=== PATIENT | female | born 1990 | race Two or more races ===

== ENCOUNTER 2019-12-04 20:13 | Emergency (ER) | payer BC ==
--- NOTE | 2019-12-04 20:35 | EDM.PDOC ---
ED HPI GENERAL MEDICAL PROBLEM - General Chief Complaint: Gastrointestinal Problem Stated Complaint: VOMITING DIZZY FEVER Time Seen by Provider: 12/04/19 20:26 - History of Present Illness INITIAL COMMENTS - FREE TEXT/NARRATIVE: 29-year-old female presents the emergency room with persistent nausea and vomiting. This is been an ongoing issue for the last several weeks. The patient has a positive test. She believes this is her fourth she had hyperemesis with all her other pregnancies but this time it seems to be worse. Patient started to get dizzy when she tries to ambulate and just cannot keep anything down food or fluids. She is not having any spotting discharge cramping or contractions. Is really not having any abdominal pain. She denies any burning or frequency with urination. She has follow-up with OB in 2 days. . Abdomen Pain Score (Numeric/FACES): 5 - Related Data Allergies Allergy/AdvReac Type Severity Reaction Status Date / Time Penicillins Allergy Hives Verified 12/04/19 20:25 Home Meds: Home Meds Ondansetron [Zofran ODT] 4 mg PO Q6H PRN #10 tab.dis 12/04/19 [Rx] Ondansetron [Zofran ODT] 4 mg PO Q6H PRN #10 tab.dis 12/04/19 [Rx] Ondansetron [Zofran ODT] 4 mg PO Q6H PRN #10 tab.dis #2 Samples 12/04/19 [Rx] Potassium Chloride [Klor-Con 10] 10 meq PO Q8H #9 tablet.er 12/04/19 [Rx] Past Medical History - Past Health History Medical/Surgical History: Denies Medical/Surgical History HEENT History: Reports: Other (See Below) Other HEENT History: wears glasses Respiratory History: Reports: Other (See Below) 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: Neurological History: Reports: Migraines Endocrine/Metabolic History: Reports: Obesity/BMI 30+ Hematologic History: Reports: Other (See Below) Dermatologic History: Reports: Eczema, Other (See Below) - Past Surgical History HEENT Surgical History: Reports: Tonsillectomy Female Surgical History: Reports: Section Social & Family History - Family History Family Medical History: Noncontributory ED ROS GENERAL - Review of Systems Review Of Systems: See Below Constitutional: Denies: Fever, Chills HEENT: Reports: No Symptoms Respiratory: Reports: No Symptoms Cardiovascular: Reports: No Symptoms Endocrine: Reports: No Symptoms GI/Abdominal: Reports: Decreased Appetite, Nausea, Vomiting. Denies: Abdominal Pain : Reports: No Symptoms Musculoskeletal: Reports: No Symptoms Skin: Reports: No Symptoms Neurological: Reports: No Symptoms ED EXAM, GI/ABD - Physical Exam Exam: See Below Exam Limited By: No Limitations General Appearance: Alert, No Apparent Distress Throat/Mouth: Normal Inspection, Normal Lips, Normal Teeth, Normal Gums, Normal Oropharynx, Normal Voice, No Airway Compromise Head: Atraumatic, Normocephalic Neck: Normal Inspection, Supple, Non-Tender, Full Range of Motion Respiratory/Chest: No Respiratory Distress, Lungs Clear, Normal Breath Sounds Cardiovascular: Regular Rate, Rhythm, No Edema, No Murmur GI/Abdominal Exam: Normal Bowel Sounds, Soft, Non-Tender Back Exam: Normal Inspection. No: CVA Tenderness (R), Muscle Spasm Extremities: Normal Inspection, No Pedal Edema Neurological: Alert, Oriented, Normal Cognition Course - Vital Signs Last Recorded V/S: Last Vital Signs Temp 36.3 C 12/04/19 20:22 Pulse 115 H 12/04/19 20:22 Resp 19 12/04/19 20:22 BP 136/100 H 12/04/19 20:22 Pulse Ox 95 12/04/19 20:22 - Orders/Labs/Meds Labs: Laboratory Tests 12/04/19 12/04/19 12/04/19 Range/Units 21:03 21:03 22:10 WBC 14.21 H (3.98-10.04) K/mm3 RBC 4.69 (3.98-5.22) M/mm3 Hgb 14.2 (11.2-15.7) gm/dl Hct 41.7 (34.1-44.9) % MCV 88.9 D (79.4-94.8) fl MCH 30.3 (25.6-32.2) pg MCHC 34.1 (32.2-35.5) g/dl RDW Std Deviation 42.3 (36.4-46.3) fL Plt Count 311 (182-369) K/mm3 MPV 10.8 (9.4-12.3) fl Neut % (Auto) 68.5 (34.0-71.1) % Lymph % (Auto) 22.2 (19.3-51.7) % [place] % (Auto) 8.7 (4.7-12.5) % Eos % (Auto) 0.4 L (0.7-5.8) Baso % (Auto) 0.1 (0.1-1.2) % Neut # (Auto) 9.72 H (1.56-6.13) K/mm3 Lymph # (Auto) 3.16 (1.18-3.74) K/mm3 [place] # (Auto) 1.24 H (0.24-0.36) K/mm3 Eos # (Auto) 0.05 (0.04-0.36) K/mm3 Baso # (Auto) 0.02 (0.01-0.08) K/mm3 Manual Slide Review Abnormal smear Sodium 137 (136-145) mEq/L Potassium 3.1 L (3.5-5.1) mEq/L Chloride 100 (98-107) mEq/L Carbon Dioxide 21 (21-32) mEq/L Anion Gap 19.1 H (5-15) BUN 8 (7-18) mg/dL Creatinine 0.6 (0.55-1.02) mg/dL Est Cr Clr Drug Dosing 108.43 mL/min Estimated GFR (MDRD) > 60 (>60) mL/min BUN/Creatinine Ratio 13.3 L (14-18) Glucose 93 (74-106) mg/dL Calcium 9.2 (8.5-10.1) mg/dL Total Bilirubin 0.6 (0.2-1.0) mg/dL AST 22 (15-37) U/L ALT 36 (14-59) U/L Alkaline Phosphatase 73 (46-116) U/L Total Protein 9.1 H (6.4-8.2) g/dl Albumin 4.5 (3.4-5.0) g/dl Globulin 4.6 gm/dL Albumin/Globulin Ratio 1.0 (1-2) HCG, Quant 74128.0 mIU/mL Urine Color Brisa H (Yellow) Urine Appearance Slt cloudy H (Clear) Urine pH 6.5 (5.0-8.0) Ur Specific [place] > or = 1.030 (1.005-1.030) Urine Protein 2+ H (Negative) Urine Glucose (UA) Negative (Negative) Urine Ketones 4+ H (Negative) Urine Occult Blood Negative (Negative) Urine Nitrite Negative (Negative) Urine Bilirubin Negative (Negative) Urine Urobilinogen 0.2 (0.2-1.0) Ur Leukocyte Esterase Negative (Negative) Urine RBC 0-5 (0-5) /hpf Urine WBC 0-5 (0-5) /hpf Ur Squamous Epith Cells 10-20 H (0-5) /hpf Urine Bacteria Moderate H (FEW) /hpf Urine Mucus Many H (FEW) /hpf Meds: Medications Discontinued Medications Generic Name Dose Route Start Last Admin Trade Name Freq PRN Reason Stop Dose Admin Lactated Ringer's 1,000 mls @ 999 mls/hr 12/04/19 20:36 12/04/19 21:05 Ringers, Lactated IV 12/04/19 21:36 999 mls/hr .BOLUS ONE Administration Ondansetron HCl 4 mg 12/04/19 20:36 12/04/19 21:05 Zofran IVPUSH 12/04/19 20:37 4 mg ONETIME ONE Administration Ondansetron HCl 4 mg 12/04/19 22:54 Zofran Odt PO 12/04/19 22:55 ONETIME ONE Potassium Chloride 20 meq 12/04/19 22:49 Klor-Con M20 PO 12/04/19 22:50 ONETIME ONE - Re-Assessments/Exams Free Text/Narrative Re-Assessment/Exam: 12/04/19 23:19 The patient received a liter of LR and 4 mg of Zofran and she can take fluid and small sips and this is slowly getting better we just gave her 4 mg of p.o. Zofran and her picked up with prescription for more Zofran already. Will discharge at this time we will give her a prescription for some potassium 10 mEq 3 times daily for 3 days and I recommended that she takes Mag-Ox 400 mg daily. Have also recommended that she get started on her vitamins. Departure - Departure Time of Disposition: 23:21 Disposition: Home, Self-Care 01 Clinical Impression: Nausea and vomiting during - Discharge Information Prescriptions: Ondansetron [Zofran ODT] 4 mg PO Q6H PRN #10 tab.dis PRN Reason: Nausea/Vomiting Ondansetron [Zofran ODT] 4 mg PO Q6H PRN #10 tab.dis #2 Samples PRN Reason: Nausea/Vomiting Ondansetron [Zofran ODT] 4 mg PO Q6H PRN #10 tab.dis PRN Reason: Nausea/Vomiting Referrals: Arcelia Miramontes PA-C [Primary Care Provider] - Forms: ED Department Discharge Additional Instructions: Return to the emergency room with any questions problems or worsening symptoms. Follow-up with OB as scheduled. Take the potassium 1 tablet 3 times a day until gone if you need to stretch it out to twice a day that is okay. You may also benefit from taking magnesium, some like magnesium oxide 400 mg a day. Use the Zofran as needed for nausea and vomiting. Drink lots of fluids advance diet as tolerated. Sepsis Event Note - Evaluation Sepsis Screening Result: No Definite Risk - Focused Exam Vital Signs: Vital Signs Temp Pulse Resp BP Pulse Ox 12/04/19 20:22 36.3 C 115 H 19 136/100 H 95 Date Exam was Performed: 12/04/19 Time Exam was Performed: 23:11
[2019-12-04] MEDS ORDERED: Ondansetron 4 MG/2 ML SDV IVPUSH ONE (20:36)
[2019-12-04] MEDS ORDERED: Lactated Ringers 1,000 ML IV ONE (20:36)
[2019-12-04] MEDS ORDERED: Potassium Chloride 20 MEQ Tab.ER PO ONE (22:49)
[2019-12-04] MEDS ORDERED: Ondansetron 4 MG Tab.DIS PO ONE (22:54)
== END 2019-12-04 23:39 | disposition home or self-care (01) ==
LOC: JD.ED 20:13
DX: O21.9 Vomiting of pregnancy, unspecified (principal); O99.211 Obesity complicating pregnancy, first trimester; Z88.0 Allergy status to penicillin
CPT/HCPCS: 36415; 80053; 81001; 84702; 85025; 96361; 96374; 99284; A9270; J2405; J7120; 99283

== ENCOUNTER 2019-12-16 21:46 | Emergency (ER) | payer BC ==
[2019-12-16] MEDS ORDERED: Sodium Chloride 0.9% 10 ML Syringe FLUSH PRN (22:00)
[2019-12-16] MEDS ORDERED: Ondansetron 4 MG/2 ML SDV IVPUSH ONE (22:01)
[2019-12-16] MEDS ORDERED: HYDROmorphone 0.5 MG/0.5 ML Syringe IVPUSH ONE (22:01)
--- NOTE | 2019-12-16 22:06 | EDM.PDOC ---
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 Patient is approximately 8 weeks . She states her symptoms began approximately 1 hour ago. She is had no vaginal bleeding. She has been having nausea and vomiting, however states that this has been consistent for the last few weeks. She has no chronic health problems. Her SENIOR DEVELOPER is Dr. Young. She saw him on 05 December. She was diagnosed with urinary tract infection for which she was prescribed Flagyl. She states that she is still taking that medication. The history that the patient is able to give is limited due to pain. She is not overly responsive to the questions. 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: Neurological History: Reports: Migraines Endocrine/Metabolic History: Reports: Obesity/BMI 30+ Hematologic History: Reports: Other (See Below) Dermatologic History: Reports: Eczema, Other (See Below) - Infectious Disease History Infectious Disease History: Reports: Chicken Pox - Past Surgical History HEENT Surgical History: Reports: Tonsillectomy Female Surgical History: Reports: Section Social & Family History - Family History Family Medical History: Noncontributory - Tobacco Use Smoking Status *Q: Never Smoker Second Hand Smoke Exposure: Yes - Caffeine Use Caffeine Use: Reports: None - Recreational Drug Use Recreational Drug Use: No ED ROS GENERAL - Review of Systems Review Of Systems: Comprehensive ROS is negative, except as noted in HPI. ED EXAM - Physical Exam Exam: See Below Exam Limited By: No Limitations General Appearance: Alert, WD/WN, Moderate Distress Respiratory/Chest: No Respiratory Distress, Lungs Clear, Normal Breath Sounds, No Accessory Muscle Use, Chest Non-Tender Cardiovascular: Normal Peripheral Pulses, Regular Rate, Rhythm, No Edema, No Gallop, No JVD, No Murmur, No Rub GI/Abdominal Exam: Normal Bowel Sounds, Soft, No Organomegaly, No Distention, No Abnormal Bruit, No Mass, Pelvis Stable, Tender (Suprapubic. Slightly worse on the right than the left.) Neurological: Alert, Oriented, CN II-XII Intact, Normal Cognition, Normal Gait, Normal Reflexes, No Motor/Sensory Deficits Psychiatric: Normal Affect, Normal Mood Skin Exam: Warm, Dry, Intact, Normal Color, No Rash Course - Vital Signs Last Recorded V/S: Last Vital Signs Temp 98.3 F 12/16/19 21:56 Pulse 85 12/16/19 21:56 Resp 16 12/16/19 21:56 BP 133/97 H 12/16/19 21:56 Pulse Ox 98 12/16/19 21:56 - Orders/Labs/Meds Labs: Laboratory Tests 12/16/19 12/16/19 12/16/19 Range/Units 22:06 22:10 22:10 WBC 15.25 H (3.98-10.04) K/mm3 RBC 4.22 (3.98-5.22) M/mm3 Hgb 13.0 (11.2-15.7) gm/dl Hct 37.8 (34.1-44.9) % MCV 89.6 (79.4-94.8) fl MCH 30.8 (25.6-32.2) pg MCHC 34.4 (32.2-35.5) g/dl RDW Std Deviation 42.2 (36.4-46.3) fL Plt Count 337 (182-369) K/mm3 MPV 10.6 (9.4-12.3) fl Neut % (Auto) 74.9 H (34.0-71.1) % Lymph % (Auto) 17.5 L (19.3-51.7) % [place] % (Auto) 7.0 (4.7-12.5) % Eos % (Auto) 0.2 L (0.7-5.8) Baso % (Auto) 0.1 (0.1-1.2) % Neut # (Auto) 11.44 H (1.56-6.13) K/mm3 Lymph # (Auto) 2.67 (1.18-3.74) K/mm3 [place] # (Auto) 1.06 H (0.24-0.36) K/mm3 Eos # (Auto) 0.03 L (0.04-0.36) K/mm3 Baso # (Auto) 0.01 (0.01-0.08) K/mm3 Manual Slide Review Normal smear Sodium (136-145) mEq/L Potassium (3.5-5.1) mEq/L Chloride (98-107) mEq/L Carbon Dioxide (21-32) mEq/L Anion Gap (5-15) BUN (7-18) mg/dL Creatinine (0.55-1.02) mg/dL Est Cr Clr Drug Dosing Estimated GFR (MDRD) (>60) mL/min BUN/Creatinine Ratio (14-18) Glucose (74-106) mg/dL Calcium (8.5-10.1) mg/dL Total Bilirubin (0.2-1.0) mg/dL AST (15-37) U/L ALT (14-59) U/L Alkaline Phosphatase (46-116) U/L C-Reactive Protein (<1.0) mg/dL Total Protein (6.4-8.2) g/dl Albumin (3.4-5.0) g/dl Globulin gm/dL Albumin/Globulin Ratio (1-2) HCG, Quant 383273.0 mIU/mL Urine Color Brisa H (Yellow) Urine Appearance Cloudy H (Clear) Urine pH 7.0 (5.0-8.0) Ur Specific [place] 1.025 (1.005-1.030) Urine Protein 2+ H (Negative) Urine Glucose (UA) Negative (Negative) Urine Ketones 1+ H (Negative) Urine Occult Blood Trace-intact H (Negative) Urine Nitrite Negative (Negative) Urine Bilirubin 2+ H (Negative) Urine Urobilinogen 1.0 (0.2-1.0) Ur Leukocyte Esterase Negative (Negative) Urine RBC 0-5 (0-5) /hpf Urine WBC 5-10 H (0-5) /hpf Ur Squamous Epith Cells >100 H (0-5) /hpf Urine Bacteria Few (FEW) /hpf Urine Mucus Many H (FEW) /hpf Blood Type Gel Antibody Screen 12/16/19 12/16/19 12/16/19 Range/Units 22:10 22:10 22:10 WBC (3.98-10.04) K/mm3 RBC (3.98-5.22) M/mm3 Hgb (11.2-15.7) gm/dl Hct (34.1-44.9) % MCV (79.4-94.8) fl MCH (25.6-32.2) pg MCHC (32.2-35.5) g/dl RDW Std Deviation (36.4-46.3) fL Plt Count (182-369) K/mm3 MPV (9.4-12.3) fl Neut % (Auto) (34.0-71.1) % Lymph % (Auto) (19.3-51.7) % [place] % (Auto) (4.7-12.5) % Eos % (Auto) (0.7-5.8) Baso % (Auto) (0.1-1.2) % Neut # (Auto) (1.56-6.13) K/mm3 Lymph # (Auto) (1.18-3.74) K/mm3 [place] # (Auto) (0.24-0.36) K/mm3 Eos # (Auto) (0.04-0.36) K/mm3 Baso # (Auto) (0.01-0.08) K/mm3 Manual Slide Review Sodium 139 (136-145) mEq/L Potassium 3.5 (3.5-5.1) mEq/L Chloride 103 (98-107) mEq/L Carbon Dioxide 22 (21-32) mEq/L Anion Gap 17.5 H (5-15) BUN 9 (7-18) mg/dL Creatinine 0.7 (0.55-1.02) mg/dL Est Cr Clr Drug Dosing TNP Estimated GFR (MDRD) > 60 (>60) mL/min BUN/Creatinine Ratio 12.9 L (14-18) Glucose 106 (74-106) mg/dL Calcium 9.5 (8.5-10.1) mg/dL Total Bilirubin 0.2 (0.2-1.0) mg/dL AST 23 (15-37) U/L ALT 38 (14-59) U/L Alkaline Phosphatase 60 (46-116) U/L C-Reactive Protein 1.5 H* (<1.0) mg/dL Total Protein 8.4 H (6.4-8.2) g/dl Albumin 3.9 (3.4-5.0) g/dl Globulin 4.5 gm/dL Albumin/Globulin Ratio 0.9 L (1-2) HCG, Quant mIU/mL Urine Color (Yellow) Urine Appearance (Clear) Urine pH (5.0-8.0) Ur Specific [place] (1.005-1.030) Urine Protein (Negative) Urine Glucose (UA) (Negative) Urine Ketones (Negative) Urine Occult Blood (Negative) Urine Nitrite (Negative) Urine Bilirubin (Negative) Urine Urobilinogen (0.2-1.0) Ur Leukocyte Esterase (Negative) Urine RBC (0-5) /hpf Urine WBC (0-5) /hpf Ur Squamous Epith Cells (0-5) /hpf Urine Bacteria (FEW) /hpf Urine Mucus (FEW) /hpf Blood Type O POSITIVE Gel Antibody Screen Negative Meds: Medications Discontinued Medications Generic Name Dose Route Start Last Admin Trade Name Freq PRN Reason Stop Dose Admin Hydromorphone HCl 0.5 mg 12/16/19 22:01 12/16/19 22:10 Dilaudid IVPUSH 12/16/19 22:02 0.5 mg ONETIME ONE Administration Sodium Chloride 1,000 mls @ 150 mls/hr 12/16/19 22:15 12/16/19 23:45 Normal Saline IV 999 mls/hr ASDIRECTED BENJAMIN Infusion Ondansetron HCl 4 mg 12/16/19 22:01 12/16/19 22:10 Zofran IVPUSH 12/16/19 22:02 4 mg ONETIME ONE Administration Sodium Chloride 10 ml 12/16/19 22:00 12/16/19 22:10 Saline Flush FLUSH 10 ml ASDIRECTED PRN Administration Keep Vein Open - Re-Assessments/Exams Free Text/Narrative Re-Assessment/Exam: 12/16/19 23:16 Patient returned from ultrasound. She is feeling much better and was able to give me a better history of what happened. She states that she has been having problems with extreme nausea and vomiting for the last few weeks. Today she has not been able to keep any fluids down. She states that she took her evening dose of Flagyl around 9 PM this evening. Approximately 15 minutes after she took that she experienced cramping in her hands as well as her left leg and then severe pelvic cramping. States it felt like "really bad period cramps". Prior to the onset of these symptoms, she was doing fine. She had no abdominal pain. She has been using the Zofran that was prescribed by Dr. Young for nausea. He also prescribed Doxylamine-pyridoxine to be taken at bedtime as needed for nausea. She states that her insurance would not cover this so she has not picked this medication up. The pharmacist recommended that she take Unisom 25 mg and B6 100 mg at bedtime in its place and stated that it would have the same effect. She also took these medications around 2100. She did verbalize at this time she is not having any cramping and that the pain has essentially resolved. I have turned her IV fluids up to a bolus at 999. We are awaiting her lab results as well as the results of her pelvic and right lower quadrant ultrasound. 12/16/19 23:47 Patient's WBCs were elevated at 15.25 with a slight left shift. Anion gap elevated at 17.5, and CRP slightly elevated at 1.5. hCG levels are appropriately elevated. Electrolytes are normal. Urinalysis is highly contaminated but is also suggestive of dehydration. Patient continues to be pain-free. On palpation she has no tenderness suprapubically or in her right lower quadrant of her abdomen. We will finish the bag of IV fluids and then discharge her home. Discussed with her that I would recommend that she call Dr. Young's office tomorrow morning to discuss marlene's occurrences and possibly schedule a follow-up visit. Discharge instructions as documented. Departure - Departure Time of Disposition: 23:30 Disposition: Home, Self-Care 01 Condition: Fair Clinical Impression: Pelvic pain affecting Qualifiers: Trimester: first trimester Qualified Code(s): O26.891 - Other specified related conditions, first trimester - Discharge Information Instructions: Pelvic Pain, Female Referrals: Davis Young MD [Primary Care Provider] - Forms: ED Department Discharge Additional Instructions: You were seen in the emergency department marlene for acute onset of pelvic cramping. Your work-up included blood work, urinalysis, a pelvic ultrasound, and an ultrasound of your lower abdomen. Overall, your work-up was found to be normal with the exception of you being dehydrated. While in ER you received a liter of IV fluids, Zofran for nausea, and Dilaudid for pain. Your pelvic cramping did completely resolve while you were here. I would recommend that you contact Dr. Young's office tomorrow morning to let them know of this evening's occurrences and arrange for a follow-up appointment as needed. You may discuss with him if he would like you to continue the Flagyl. As we discussed, I do not feel that it is likely that this cause your pain and I do not recommend that you stop taking it without first discussing it with Dr. Young. If the symptoms should return or you develop any new or worsening symptoms of concern, I would recommend that you return to the emergency department. Sepsis Event Note - Evaluation Sepsis Screening Result: No Definite Risk - Focused Exam Date Exam was Performed: 12/18/19 Time Exam was Performed: 11:12
[2019-12-16] MEDS ORDERED: Sodium Chloride 0.9% 1,000 ML IV SCH (22:15)
--- NOTE | 2019-12-17 05:25 | US ---
Limited abdominal ultrasound: Multiple real-time images were obtained of the right lower abdomen. Appendix not definitely visualized. Impression: 1. No definite appendix is seen. Study does not rule out or rule in appendicitis. Diagnostic code #2 This report was dictated in MDT I agree with preliminary report from Rogelio, finalized on 12/17/19, 12:41 AM Central Daylight Time
--- NOTE | 2019-12-17 05:25 | US ---
1st trimester obstetrical ultrasound: Multiple real-time images of the upper right abdomen were obtained. Dates: Current ultrasound: MELVIN 07/29/20, gestational age 7 weeks 5 days Single intrauterine gestation is seen. Amniotic fluid volume is normal. Small embryo is seen as well a small yolk sac. No subchorionic hemorrhage is identified. Maternal ovaries are within normal limits. No free fluid is seen. Measurements: [place]-rump: 1.40 cm - 7 weeks 5 days Heart rate: 154 bpm Impression: 1. Single intrauterine gestation. Dates as noted above. 2. No complicating process is seen by ultrasound at this time. Diagnostic code #1 This report was dictated in MDT I agree with preliminary report from ramirez, finalized on 12/17/19, 12:38 AM Central daylight Time
== END 2019-12-17 00:15 | disposition home or self-care (01) ==
LOC: JD.ED 21:46
DX: O99.89 Other specified diseases and conditions complicating pregnancy, childbirth and the puerperium (principal); R10.2 Pelvic and perineal pain; Z88.0 Allergy status to penicillin; Z77.22 Contact with and (suspected) exposure to environmental tobacco smoke (acute) (chronic); Z3A.08 8 weeks gestation of pregnancy
CPT/HCPCS: 36415; 76705; 76817; 80053; 81001; 84702; 85025; 86140; 86850; 86900; 86901; 96361; 96374; 96375; 99284; J1170; J2405; J7030

== ENCOUNTER 2019-12-17 04:25 | Inpatient (IN) | payer BC ==
--- NOTE | 2019-12-17 05:10 | EDM.PDOC ---
ED HPI GENERAL MEDICAL PROBLEM - General Chief Complaint: Gastrointestinal Problem Stated Complaint: POOPING BLOOD PREG Time Seen by Provider: 12/17/19 04:38 Source of Information: Reports: Patient History Limitations: Reports: No Limitations - History of Present Illness INITIAL COMMENTS - FREE TEXT/NARRATIVE: Ms. Barron is a very pleasant 29-year-old woman with no chronic medical issues , who is 7 weeks 6 days gestation by an ultrasound obtained just last night, who was seen in this ED after presenting with 1 hour of pelvic cramps. No vaginal bleeding. She was found to be hemodynamically stable, afebrile, saturating 98% on room air. On physical exam, she was tender suprapubically, slightly worse on the right than the left. Work-up included a CBC, CMP, CRP, quantitative hCG, a urinalysis, and an ultrasound of the right lower quadrant, as well as a transvaginal ultrasound. The CBC was remarkable for a WBC count slightly elevated at 15.25, but was otherwise unremarkable. The CMP was remarkable for an anion gap mildly elevated at 17.5, but with a bicarbonate normal at 22. The remainder of the CMP was unremarkable. The CRP was mildly elevated at 1.5. The quantitative hCG was 128,972. The urinalysis was remarkable for trace occult blood with 0-5 RBCs, leukocyte esterase negative with 5-10 WBCs, nitrite negative with few bacteria, and greater than 100 squamous epithelial cells. The ultrasound of the right lower quadrant was read as "Neither a normal nor an abnormal appendix is definitively identified and therefore appendicitis cannot be ruled out with certainty." The transvaginal ultrasound was read as "Single live intrauterine gestation measuring 7 weeks 5 days with an MELVIN by ultrasound of 07/29/2020." The patient now returns to the ED stating that about 1 hour after leaving the ED , around 01:00 this morning, she developed generalized crampy abdominal pain and bright red blood per rectum. She states that she has had numerous episodes. No vaginal bleeding. She has had both nausea and vomiting, but that has been throughout this . No recent constipation or diarrhea. No recent fever. No prior similar symptoms. The patient did not take any over-the -counter or home remedies to try to treat her symptoms. Here in the ED, the patient is found to be hemodynamically stable, afebrile, saturating 97% on room air. The patient's PCP is JOSE ROBERTO Hermosillo. Her BUILDING DRAFTER is Dr. Davis Young. She received an influenza vaccine this season. Abdomen Pain Score (Numeric/FACES): 10 - Related Data Allergies Allergy/AdvReac Type Severity Reaction Status Date / Time Penicillins Allergy Hives Verified 12/17/19 04:34 Home Meds: Home Meds Ondansetron [Zofran ODT] 4 mg PO Q6H PRN #10 tab.dis 12/04/19 [Rx] Ondansetron [Zofran ODT] 4 mg PO Q6H PRN #10 tab.dis 12/04/19 [Rx] Ondansetron [Zofran ODT] 4 mg PO Q6H PRN #10 tab.dis #2 Samples 12/04/19 [Rx] Potassium Chloride [Klor-Con 10] 10 meq PO Q8H #9 tablet.er 12/04/19 [Rx] Past Medical History HEENT History: Reports: Impaired Vision Other HEENT History: wears glasses : 4 Para: 3 Dermatologic History: Reports: Eczema - Infectious Disease History Infectious Disease History: Reports: Chicken Pox - Past Surgical History HEENT Surgical History: Reports: Oral Surgery (wisdom teeth extraction), Tonsillectomy Female Surgical History: Reports: Section (x 2) Social & Family History - Family History Family Medical History: Noncontributory - Tobacco Use Smoking Status *Q: Former Smoker Years of Tobacco use: 17 Packs/Tins Daily: 0.3 Month/Year Tobacco Last Used: Quit Nov 2019 - Caffeine Use Caffeine Use: Reports: None - Alcohol Use Alcohol Use History: Yes Alcohol Use Frequency: Socially (when not pregant) - Recreational Drug Use Recreational Drug Use: Yes Drug Use in Last 12 Months: Yes Recreational Drug Type: Reports: Marijuana/Hashish (last smoked Oct 2019) - Living Situation & Occupation Living situation: Reports: Single, with Significant Other, with Family (3 kids) 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 ED EXAM, GI/ABD - Physical Exam Exam: See Below Exam Limited By: No Limitations General Appearance: Alert, WD/WN, No Apparent Distress, Anxious Eyes: Bilateral: Normal Appearance, EOMI Ears: Normal External Exam, Hearing Grossly Normal Nose: Normal Inspection Throat/Mouth: Normal Inspection, Normal Lips, Normal Voice, No Airway Compromise Head: Atraumatic, Normocephalic Neck: Normal Inspection, Full Range of Motion Respiratory/Chest: No Respiratory Distress, Lungs Clear, Normal Breath Sounds, No Accessory Muscle Use Cardiovascular: Normal Peripheral Pulses, Regular Rate, Rhythm, No Edema, No Gallop, No JVD, No Murmur, No Rub GI/Abdominal Exam: Normal Bowel Sounds, Soft, No Organomegaly, No Distention, No Abnormal Bruit, No Mass, Tender (Generalized, non-focal.), Mass (Gravid uterus, consistent with dates) (Female) Exam: Deferred Rectal (Female) Exam: Heme + Stool (no visible blood on finger, but smear positive). No: Hemorrhoids Back Exam: Normal Inspection, Full Range of Motion. No: CVA Tenderness (L), CVA Tenderness (R) Extremities: Normal Inspection, Normal Range of Motion, No Pedal Edema, Normal Capillary Refill Neurological: Alert, Oriented, Normal Cognition, No Motor/Sensory Deficits Psychiatric: Anxious Skin Exam: Warm, Dry, Intact, Normal Color, No Rash Course - Vital Signs Last Recorded V/S: Last Vital Signs Temp 37.3 C 12/17/19 04:30 Pulse 86 12/17/19 04:30 Resp 16 12/17/19 04:30 BP 137/83 12/17/19 04:30 Pulse Ox 97 12/17/19 04:30 Orthostatic Blood Pressure [ 123/89 Standing] Orthostatic Blood Pressure [ 128/83 Supine] - Orders/Labs/Meds Orders: Active Orders 24 hr Category Date Time Status Orthostatic Vital Signs [RC] STAT Care 12/17/19 05:10 Ordered HEMOGLOBIN/HEMATOCRIT,HH [HEME] Stat Lab 12/17/19 05:31 Ordered Meds: Medications Discontinued Medications Generic Name Dose Route Start Last Admin Trade Name Freq PRN Reason Stop Dose Admin Hydromorphone HCl 0.5 mg 12/17/19 05:32 Dilaudid IVPUSH 12/17/19 05:33 ONETIME ONE Ondansetron HCl 4 mg 12/17/19 05:34 Zofran IVPUSH 12/17/19 05:35 ONETIME ONE - Re-Assessments/Exams Free Text/Narrative Re-Assessment/Exam: 12/17/19 05:17 As above, the patient developed bright red blood per rectum, associated with generalized abdominal pain, early this morning. Bright red blood per rectum in would most likely be associated with internal hemorrhoids, however, that would not explain her generalized abdominal pain and tenderness. On rectal exam, no visible blood was on my finger, however, the smear was Hemoccult positive. The patient is not orthostatic. 12/17/19 05:[address] Gomez at 05:20. She recommended that I call the surgeon, as this is not a -related issue. Case then discussed with Dr. Cavanaugh. He recommended that we recheck an H/H, place the patient into observation, and give her a clear liquid diet. He would like to observe the patient to see how much bleeding she has, and he will consider enemas and a sigmoidoscopy. 12/17/19 05:35 The above plan was discussed with the patient. She is agreeable. I have put in an order for some Dilaudid and Zofran to treat her discomfort. Departure - Departure Time of Disposition: 05:35 Disposition: Refer to Observation Condition: Good Clinical Impression: Bright red blood per rectum, Abdominal cramps, First trimester - Discharge Information *PRESCRIPTION DRUG MONITORING PROGRAM REVIEWED*: Not Applicable *COPY OF PRESCRIPTION DRUG MONITORING REPORT IN PATIENT DELONTE: Not Applicable Referrals: Dvais Young MD [Primary Care Provider] - Farhat Cavanaugh MD [Physician] - Forms: ED Department Discharge Sepsis Event Note - Evaluation Sepsis Screening Result: No Definite Risk - Focused Exam Vital Signs: Vital Signs Temp Pulse Resp BP Pulse Ox 12/17/19 04:30 37.3 C 86 16 137/83 97 Date Exam was Performed: 12/17/19 Time Exam was Performed: 05:42 - My Orders Last 24 Hours: My Active Orders 12/17/19 05:10 Orthostatic Vital Signs [RC] STAT 12/17/19 05:31 HEMOGLOBIN/HEMATOCRIT,HH [HEME] Stat - Assessment/Plan Last 24 Hours: My Active Orders 12/17/19 05:10 Orthostatic Vital Signs [RC] STAT 12/17/19 05:31 HEMOGLOBIN/HEMATOCRIT,HH [HEME] Stat
[2019-12-17] MEDS ORDERED: HYDROmorphone 0.5 MG/0.5 ML Syringe IVPUSH ONE (05:32)
[2019-12-17] MEDS ORDERED: Ondansetron 4 MG/2 ML SDV IVPUSH ONE (05:34)
[2019-12-17] MEDS ORDERED: Sodium Chloride 0.9% 1,000 ML IV ONE (05:59)
--- NOTE | 2019-12-17 10:26 | PCM.HP.2 ---
H&P History of Present Illness - General Date of Service: 12/17/19 Admit Problem/Dx: Admission Diagnosis/Problem Admission Diagnosis/Problem Blood present in stool Source of Information: Patient History Limitations: Reports: No Limitations - History of Present Illness Initial Comments - Free Text/Narative: The patient is 7 weeks and 6 days and presented with 1 day of abdominal pain. Initially seen in the ED 12/15 for abdominal cramps that were generalized. She has been nauseated and vomiting since conception. Labs at that time were remarkable for WBC of 15 and CRP of 1.5. She was discharged home on the morning of 12/16. But she returned later for persistent abdominal cramps and bright red blood per rectum. She reports that her abdominal pain is crampy and colicky in nature, with episodes of high intensity pain from moderate to severe. Nothing makes the pain better or worse, going to the bathroom does not improve the pain. The pain is generalized. Otherwise no fevers no chills. She is currently on antibiotics for possible UTI that was started 5 days ago. Otherwise healthy lady. Repeat H/H in the ED was 12.4 which is the same as prior to bleeding episodes. Onset of Symptoms: Reports: Gradual Duration of Symptoms: Reports: Day(s): Location: Reports: Abdomen Quality: Reports: Sharp Severity: Severe Improves with: Reports: None Worsens with: Reports: None Associated Symptoms: Reports: Nausea/Vomiting Abdomen Pain Score (Numeric/FACES): 10 - Related Data Allergies/Adverse Reactions: Allergies Allergy/AdvReac Type Severity Reaction Status Date / Time Penicillins Allergy Hives Verified 12/17/19 08:29 Home Medications: Home Meds [id number]/Iron Fumarate/FA/DSS [ 19 Tablet] 1 tab PO DAILY 12/17/19 [ History] Past Medical History - Past Health History Medical/Surgical History: Denies Medical/Surgical History HEENT History: Reports: Impaired Vision Other HEENT History: wears glasses Respiratory History: Reports: Other (See Below) 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: Neurological History: Reports: Migraines Endocrine/Metabolic History: Reports: Obesity/BMI 30+ Hematologic History: Reports: Other (See Below) Dermatologic History: Reports: Eczema - Infectious Disease History Infectious Disease History: Reports: Chicken Pox - Past Surgical History HEENT Surgical History: Reports: Oral Surgery, Tonsillectomy Female Surgical History: Reports: Section Social & Family History - Family History Family Medical History: Noncontributory - Tobacco Use Smoking Status *Q: Former Smoker Years of Tobacco use: 17 Packs/Tins Daily: 0.3 Used Tobacco, but Quit: Yes Month/Year Tobacco Last Used: 11/29 Second Hand Smoke Exposure: No - Caffeine Use Caffeine Use: Reports: Coffee - Recreational Drug Use Recreational Drug Use: Yes Drug Use in Last 12 Months: No Recreational Drug Type: Reports: Marijuana/Hashish - Living Situation & Occupation Living situation: Reports: Single, with Significant Other, with Family (3 kids) 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) H&P Review of Systems - Review of Systems: Review Of Systems: See Below General: Reports: No Symptoms HEENT: Reports: No Symptoms Pulmonary: Reports: No Symptoms Cardiovascular: Reports: No Symptoms Gastrointestinal: Reports: Abdominal Pain, Hematochezia, Nausea, Vomiting Genitourinary: Reports: No Symptoms Musculoskeletal: Reports: No Symptoms Skin: Reports: No Symptoms Psychiatric: Reports: No Symptoms Neurological: Reports: No Symptoms Hematologic/Lymphatic: Reports: No Symptoms Immunologic: Reports: No Symptoms Exam - Exam Exam: See Below - Vital Signs Vital Signs: Last Vital Signs Temp 99.1 F 12/17/19 07:38 Pulse 74 12/17/19 07:38 Resp 16 12/17/19 07:38 BP 110/81 12/17/19 07:38 Pulse Ox 98 12/17/19 07:38 Orthostatic Blood Pressure [ 122/82 Standing] Orthostatic Blood Pressure [ 129/77 Supine] Weight: 70.896 kg - Exam General: Alert, Oriented, Cooperative, Mild Distress HEENT: Conjunctiva Clear Neck: Supple, Trachea Midline Lungs: Clear to Auscultation, Normal Respiratory Effort Cardiovascular: Regular Rate, Regular Rhythm, Normal S1, Normal S2 GI/Abdominal Exam: Soft, No Organomegaly, No Distention, No Abnormal Bruit, No Mass, Pelvis Stable, Tender (LUQ, LLQ, suprapubic, RLQ, RUQ) Rectal (Female) Exam: Normal Rectal Tone, Hemorrhoids (possible internal.), Other (No stigmata of bleeding noted on rectal exam) Extremities: Normal Inspection - Patient Data Lab Results Last 24 hrs: Laboratory Results - last 24 hr 12/17/19 Range/Units 05:49 Hgb 12.4 (11.2-15.7) gm/dl Hct 36.3 (34.1-44.9) % Result Diagrams: 12/17/19 05:49 Sepsis Event Note - Evaluation Sepsis Screening Result: No Definite Risk - Focused Exam Vital Signs: Vital Signs Temp Temp Pulse Pulse Resp BP BP 12/17/19 07:38 99.1 F 74 16 110/81 12/17/19 06:53 78 16 122/71 12/17/19 04:30 99.1 F 86 16 137/83 Pulse Ox 12/17/19 07:38 98 12/17/19 06:53 98 12/17/19 04:30 97 Date Exam was Performed: 12/17/19 Time Exam was Performed: 10:21 Problem List Initiated/Reviewed/Updated: No Orders Last 24hrs: Active Orders 24 hr Category Date Time Status Admission Status [Patient Status] [ADT] Routine ADT 12/17/19 06:04 Active Activity as Tolerated [RC] .Routine Care 12/17/19 08:53 Active Communication Order [RC] ASDIRECTED Care 12/17/19 08:54 Active Vital Signs [RC] Q4H Care 12/17/19 10:18 Ordered Clear Liquid Diet [DIET] Diet 12/17/19 Breakfast Active CBC WITH AUTO DIFF [HEME] Routine Lab 12/18/19 05:00 Ordered HEMOGLOBIN/HEMATOCRIT,HH [HEME] Routine Lab 12/17/19 14:00 Ordered Sodium Chloride 0.9% [Normal Saline] 1,000 ml Med 12/17/19 05:59 Active IV ONETIME Code Status [Resuscitation Status] Routine Resus Stat 12/17/19 08:53 Ordered Medication Orders Sodium Chloride (Normal Saline) 1,000 mls @ 75 mls/hr IV ONETIME ONE Stop: 12/17/19 19:18 Last Admin: 12/17/19 06:00 Dose: 75 mls/hr Assessment/Plan Comment:: Patient has generalized abdominal pain and hematochezia. She is 7 weeks 6 days with morning sickness. - We will monitor H/H, hydrate her and monitor her symptoms. If hematochezia persists, we may consider intervention.
[2019-12-17] MEDS: HYDROmorphone 0.5 MG/0.5 ML Syringe IVPUSH PRN ×2 (12:33→21:31)
[2019-12-17] MEDS: Acetaminophen 325 MG Tab PO PRN (17:59)
[2019-12-17] MEDS ORDERED: Lactated Ringers 1,000 ML IV SCH (18:30)
--- NOTE | 2019-12-17 20:53 | PCM.SN ---
- Free Text/Narrative Note: We trended Hgb today and remains stable at 11-12. However, the patient continues to have severe episodes of abdominal pain and bloody tinged stools. We will check CBC, CRP and ESR in the morning and I will offer her a diagnostic sigmoidoscopy. we will continue symptomatic management overnight.
[2019-12-17] MEDS: Ondansetron 4 MG Tab.DIS PO PRN (21:31)
[2019-12-18] MEDS: HYDROmorphone 0.5 MG/0.5 ML Syringe IVPUSH PRN (04:08)
[2019-12-18] MEDS ORDERED: Lidocaine 1%/Sod Bicarbonate in NS 8.4% 1 ML Syringe IDERM PRN (07:20)
[2019-12-18] MEDS ORDERED: Sodium Chloride 0.9% 10 ML Syringe FLUSH PRN (07:20)
[2019-12-18] MEDS ORDERED: Lactated Ringers 1,000 ML IV SCH (07:30)
[2019-12-18] MEDS ORDERED: Propofol 200 MG/20 ML SDV ONE ×2 (09:13→09:21)
--- NOTE | 2019-12-18 09:50 | PCM48HPAN ---
Post Anesthesia Note - EVALUATION WITHIN 48HRS OF ANESTHETIC Vital Signs in Normal Range: Yes Patient Participated in Evaluation: Yes Respiratory Function Stable: Yes Airway Patent: Yes Cardiovascular Function Stable: Yes Hydration Status Stable: Yes Pain Control Satisfactory: Yes Nausea and Vomiting Control Satisfactory: Yes Mental Status Recovered: Yes Vital Signs: Last Vital Signs Temp 36.7 C 12/18/19 08:49 Pulse 73 12/18/19 08:49 Resp 14 12/18/19 03:46 BP 121/68 12/18/19 08:49 Pulse Ox 99 12/18/19 08:49 Orthostatic Blood Pressure [ 122/82 Standing] Orthostatic Blood Pressure [ 129/77 Supine] - COMMENTS/OBSERVATIONS Free Text/Narrative:: no anesthesia complications noted
--- NOTE | 2019-12-18 10:24 | PROC ---
DATE OF OPERATION: 12/18/2019 SURGEON: Farhat Cavanaugh MD PREOPERATIVE DIAGNOSES: Hematochezia and abdominal pain. POSTOPERATIVE DIAGNOSIS: Inflamed colon. PROCEDURE: Colonoscopy to transverse colon. ESTIMATED BLOOD LOSS: Minimal. COMPLICATIONS: None. ANESTHESIA: Monitored anesthesia care. INDICATIONS AND CONSENT: The patient is a 29-year-old female, who presented to the emergency department with abdominal cramps associated with hematochezia. The patient was not able to be discharged. She is now 8 weeks' and has been having these problems for 2 days. I admitted the patient and observed her. Her hemoglobin is stable. She continued to have abdominal cramping that is severe at times. I offered to proceed with sigmoidoscopy due to her persistent symptoms. Risks, benefits, and alternatives were discussed and informed consent was obtained. DETAILS OF PROCEDURE: The patient was taken to the procedure room, placed in left lateral decubitus position. Following induction of monitored anesthesia care, a time-out was performed. I began the procedure. Perianal exam was normal. Digital rectal exam was normal. We placed the scope and advanced it slowly, all the way to the transverse colon. We were able to look into the hepatic flexure. The proximal transverse colon appeared to be grossly normal. In the [id number] transverse colon, at 80 cm from the anal verge, there appeared to be mucosal inflammatory change of the colon. This started from the mid-transverse colon all the way to the sigmoid colon at about 30 cm from the anal verge. This area had mucosal inflammation with no active bleeding. There was mucus and inflammation. Multiple biopsies were taken at the distal transverse colon, descending colon and sigmoid colon, as well as the rectum for pathologic analysis. EBL was minimal. The rectum appeared to be grossly normal, and there were no other abnormalities. At this time, air was suctioned out from the colon and the scope was removed concluding the procedure. The patient tolerated the procedure well at the end of procedure and was taken back to the room for further recovery. MMODAL /[id number]
[2019-12-18] MEDS: Prenatal Multivitamin with Calcium/Folic Acid/Iron Tab PO SCH (11:37)
[2019-12-18] MEDS: Clindamycin HCl 150 MG Cap PO SCH ×2 (11:43→20:50)
[2019-12-18] MEDS: Acetaminophen 325 MG Tab PO PRN (14:15)
[2019-12-18] MEDS: Ondansetron 4 MG Tab.DIS PO PRN ×2 (14:38→19:24)
[2019-12-18] MEDS: oxyCODONE 5 MG Tab PO PRN (15:13)
--- NOTE | 2019-12-18 16:59 | PCM.SURGPN ---
- General Info Date of Service: 12/18/19 POD#: 0 Functional Status: Reports: Pain Controlled, Tolerating Diet, Ambulating - Review of Systems General: Reports: No Symptoms HEENT: Reports: No Symptoms Pulmonary: Reports: No Symptoms Cardiovascular: Reports: No Symptoms Gastrointestinal: Reports: Abdominal Pain, Hematochezia Genitourinary: Reports: No Symptoms Musculoskeletal: Reports: No Symptoms Skin: Reports: No Symptoms - Patient Data Vitals - Most Recent: Last Vital Signs Temp 98.1 F 12/18/19 08:49 Pulse 93 12/18/19 14:31 Resp 14 12/18/19 03:46 BP 96/57 L 12/18/19 14:02 Pulse Ox 99 12/18/19 14:31 Orthostatic Blood Pressure [ 122/82 Standing] Orthostatic Blood Pressure [ 129/77 Supine] Weight - Most Recent: 70.942 kg I&O - Last 24 Hours: Intake & Output 12/18/19 12/18/19 12/18/19 06:59 14:59 22:59 Intake Total 551 168 3813 Output Total 75 Balance 701 390 8521 Lab Results Last 24 Hrs: Laboratory Results - last 24 hr 12/17/19 12/17/19 12/18/19 Range/Units 20:09 21:31 05:05 WBC 14.38 H (3.98-10.04) K/mm3 RBC 4.16 (3.98-5.22) M/mm3 Hgb 12.0 12.7 (11.2-15.7) gm/dl Hct 36.0 37.7 (34.1-44.9) % MCV 90.6 (79.4-94.8) fl MCH 30.5 (25.6-32.2) pg MCHC 33.7 (32.2-35.5) g/dl RDW Std Deviation 43.0 (36.4-46.3) fL Plt Count 327 (182-369) K/mm3 MPV 10.1 (9.4-12.3) fl Neut % (Auto) 65.1 (34.0-71.1) % Lymph % (Auto) 27.3 (19.3-51.7) % [place] % (Auto) 6.7 (4.7-12.5) % Eos % (Auto) 0.7 (0.7-5.8) Baso % (Auto) 0.1 (0.1-1.2) % Neut # (Auto) 9.35 H (1.56-6.13) K/mm3 Lymph # (Auto) 3.92 H (1.18-3.74) K/mm3 [place] # (Auto) 0.97 H (0.24-0.36) K/mm3 Eos # (Auto) 0.10 (0.04-0.36) K/mm3 Baso # (Auto) 0.02 (0.01-0.08) K/mm3 ESR (0-20) mm/hr C-Reactive Protein 2.6 H* (<1.0) mg/dL 12/18/19 Range/Units 05:05 WBC (3.98-10.04) K/mm3 RBC (3.98-5.22) M/mm3 Hgb (11.2-15.7) gm/dl Hct (34.1-44.9) % MCV (79.4-94.8) fl MCH (25.6-32.2) pg MCHC (32.2-35.5) g/dl RDW Std Deviation (36.4-46.3) fL Plt Count (182-369) K/mm3 MPV (9.4-12.3) fl Neut % (Auto) (34.0-71.1) % Lymph % (Auto) (19.3-51.7) % [place] % (Auto) (4.7-12.5) % Eos % (Auto) (0.7-5.8) Baso % (Auto) (0.1-1.2) % Neut # (Auto) (1.56-6.13) K/mm3 Lymph # (Auto) (1.18-3.74) K/mm3 [place] # (Auto) (0.24-0.36) K/mm3 Eos # (Auto) (0.04-0.36) K/mm3 Baso # (Auto) (0.01-0.08) K/mm3 ESR 24 H (0-20) mm/hr C-Reactive Protein (<1.0) mg/dL Med Orders - Current: Current Medications Acetaminophen (Tylenol) 650 mg PO Q4H PRN PRN Reason: Pain Last Admin: 12/18/19 14:15 Dose: 650 mg Clindamycin HCl (Cleocin) 150 mg PO Q8H [facility] Last Admin: 12/18/19 11:43 Dose: 150 mg Ondansetron HCl (Zofran Odt) 4 mg PO Q4H PRN PRN Reason: Nausea/Vomiting Last Admin: 12/18/19 14:38 Dose: 4 mg Oxycodone HCl (Oxycodone) 5 mg PO Q6H PRN PRN Reason: Abdominal Pain Last Admin: 12/18/19 15:13 Dose: 5 mg Prenat Multivit/[employer]/Iron/Folic Ac ( Plus Iron) 1 each PO DAILY [facility] Last Admin: 12/18/19 11:37 Dose: 1 each Discontinued Medications Hydromorphone HCl (Dilaudid) 0.5 mg IVPUSH ONETIME ONE Stop: 12/17/19 05:33 Last Admin: 12/17/19 05:52 Dose: 0.5 mg Hydromorphone HCl (Dilaudid) 0.5 mg IVPUSH Q6H PRN PRN Reason: Pain (severe 7-10) Last Admin: 12/18/19 04:08 Dose: 0.5 mg Sodium Chloride (Normal Saline) 1,000 mls @ 75 mls/hr IV ONETIME ONE Stop: 12/17/19 19:18 Last Admin: 12/17/19 06:00 Dose: 75 mls/hr Lactated Ringer's (Ringers, Lactated) 1,000 mls @ 50 mls/hr IV ASDIRECTED [facility] Last Admin: 12/17/19 19:25 Dose: 50 mls/hr Lactated Ringer's (Ringers, Lactated) 1,000 mls @ 125 mls/hr IV ASDIRECTED [facility] Lidocaine/Sodium Bicarbonate (Buffered Lidocaine 1% In Ns 8.4%) 0.25 ml IDERM ONETIME PRN PRN Reason: Prior to IV Start Ondansetron HCl (Zofran) 4 mg IVPUSH ONETIME ONE Stop: 12/17/19 05:35 Last Admin: 12/17/19 05:52 Dose: 4 mg Propofol (Diprivan 20 Ml) Confirm Administered Dose 200 mg .ROUTE .STK-MED ONE Stop: 12/18/19 09:14 Propofol (Diprivan 20 Ml) Confirm Administered Dose 200 mg .ROUTE .STK-MED ONE Stop: 12/18/19 09:22 Sodium Chloride (Saline Flush) 10 ml FLUSH ASDIRECTED PRN PRN Reason: Keep Vein Open - Exam General: Alert, Oriented, Cooperative Lungs: Clear to Auscultation, Normal Respiratory Effort Cardiovascular: Regular Rate, Regular Rhythm, No Murmurs GI/Abdominal Exam: Soft, No Organomegaly, No Distention, No Abnormal Bruit, Pelvis Stable, Tender (diffusely) Skin: Warm, Dry, Intact Sepsis Event Note - Evaluation Sepsis Screening Result: No Definite Risk - Focused Exam Vital Signs: Vital Signs Temp Pulse Pulse BP BP Pulse Ox 12/18/19 14:31 93 99 12/18/19 14:02 100 96/57 L 100 12/18/19 13:34 42 L 120/104 H 12/18/19 13:32 108 H 120/104 H 100 12/18/19 13:22 104 H 128/74 100 12/18/19 13:20 94 128/74 99 12/18/19 13:01 97 141/122 H 98 12/18/19 12:43 121 H 100 12/18/19 12:32 89 124/67 99 12/18/19 12:01 99 137/72 99 12/18/19 11:33 82 96/64 98 12/18/19 11:25 78 132/75 99 12/18/19 08:49 98.1 F 73 121/68 99 Date Exam was Performed: 12/18/19 Time Exam was Performed: 16:52 - Problem List Review Problem List Initiated/Reviewed/Updated: No - My Orders Last 24 Hours: Active Orders 24 hr Category Date Time Status Enema [RC] ASDIRECTED Care 12/18/19 04:00 Active Peripheral IV Care [RC] . DIRECTED Care 12/18/19 07:20 Active Verify Patient Consent Obtain [RC] ASDIRECTED Care 12/18/19 07:20 Active Regular Diet [DIET] Diet 12/18/19 Lunch Active C-REACTIVE PROTEIN [CHEM] Routine Lab 12/19/19 05:00 Ordered CBC WITH AUTO DIFF [HEME] AM Lab 12/19/19 05:11 Ordered Ondansetron [Zofran ODT] Med 12/17/19 20:54 Active 4 mg PO Q4H PRN Vit with Ca/FA/Iron [ Plus Iron] Med 12/18/19 12:00 Active 1 each PO DAILY clindamycin HCL [Cleocin] Med 12/18/19 12:00 Active 150 mg PO Q8H oxyCODONE Med 12/18/19 14:57 Active 5 mg PO Q6H PRN Medication Administration Instruction [OM.PC] Routine Oth 12/18/19 07:20 Ordered Peripheral IV Insertion Adult [OM.PC] Routine Oth 12/18/19 07:20 Ordered Schedule Procedure [COMM] Routine Oth 12/17/19 23:25 Ordered Medication Orders Acetaminophen (Tylenol) 650 mg PO Q4H PRN PRN Reason: Pain Last Admin: 12/18/19 14:15 Dose: 650 mg Admin: 12/17/19 17:59 Dose: 650 mg Clindamycin HCl (Cleocin) 150 mg PO Q8H [facility] Last Admin: 12/18/19 11:43 Dose: 150 mg Ondansetron HCl (Zofran Odt) 4 mg PO Q4H PRN PRN Reason: Nausea/Vomiting Last Admin: 12/18/19 14:38 Dose: 4 mg Admin: 12/17/19 21:31 Dose: 4 mg Oxycodone HCl (Oxycodone) 5 mg PO Q6H PRN PRN Reason: Abdominal Pain Last Admin: 12/18/19 15:13 Dose: 5 mg Prenat Multivit/[employer]/Iron/Folic Ac ( Plus Iron) 1 each PO DAILY [facility] Last Admin: 12/18/19 11:37 Dose: 1 each - Assessment Assessment (Free Text/Narrative):: Patient has persistent diffuse abd pain and mild hematochezia. She underwent colonoscopy to splenic flexure today. There is segmental inflammation of the colon from distal transverse to sigmoid. This area was biopsied. Unclear if this is an infectious process vs inflammatory such as IBD. - Plan Plan (Free Text/Narrative):: - Will treat her with antibiotics (Clinda as the patient is allergic to PCN and I am avoiding Flagyl due to early ) while we wait for pathology results - We will obtain MRI abdomen and Pelvis to eval for inflammation in other areas of the bowel as the patient has diffuse abdominal pain and the area found on colonoscopy is limited. MRI enterography without IV contrast not able to be done inhouse - Reg diet, dc IVF, start PO meds today - If she tolerates diet and pain is controlled then work up can be continued as an outpatient Plan was discussed with the patient.
[2019-12-19] MEDS: Clindamycin HCl 150 MG Cap PO SCH ×2 (04:39→16:03)
[2019-12-19] MEDS: oxyCODONE 5 MG Tab PO PRN (04:39)
[2019-12-19] MEDS: Ondansetron 4 MG Tab.DIS PO PRN ×2 (07:39→12:26)
[2019-12-19] MEDS ORDERED: D5 1/2 NS w/ 20 mEq/L KCl 1,000 ML IV SCH (07:45)
--- NOTE | 2019-12-19 09:15 | PCM.SURGPN ---
- General Info Date of Service: 12/19/19 POD#: 1 Functional Status: Reports: Pain Controlled, Ambulating, Urinating, Other ( continues to vomit most of the food intake, reports that her abdominal pain is improving.) - Review of Systems General: Reports: No Symptoms HEENT: Reports: No Symptoms Pulmonary: Reports: No Symptoms Cardiovascular: Reports: No Symptoms Gastrointestinal: Reports: Abdominal Pain, Nausea, Vomiting Genitourinary: Reports: No Symptoms Musculoskeletal: Reports: No Symptoms Skin: Reports: No Symptoms Neurological: Reports: No Symptoms Psychiatric: Reports: No Symptoms - Patient Data Vitals - Most Recent: Last Vital Signs Temp 98.2 F 12/19/19 08:57 Pulse 77 12/19/19 08:57 Resp 16 12/19/19 08:57 BP 103/64 12/19/19 08:57 Pulse Ox 97 12/19/19 08:57 Orthostatic Blood Pressure [ 122/82 Standing] Orthostatic Blood Pressure [ 129/77 Supine] Weight - Most Recent: 69.717 kg I&O - Last 24 Hours: Intake & Output 12/18/19 12/19/19 12/19/19 22:59 06:59 14:59 Intake Total 1050 200 Output Total 100 Balance 950 200 Lab Results Last 24 Hrs: Laboratory Results - last 24 hr 12/19/19 12/19/19 Range/Units 05:19 05:19 WBC 13.96 H (3.98-10.04) K/mm3 RBC 3.94 L (3.98-5.22) M/mm3 Hgb 11.7 (11.2-15.7) gm/dl Hct 35.7 (34.1-44.9) % MCV 90.6 (79.4-94.8) fl MCH 29.7 (25.6-32.2) pg MCHC 32.8 (32.2-35.5) g/dl RDW Std Deviation 42.5 (36.4-46.3) fL Plt Count 338 (182-369) K/mm3 MPV 10.6 (9.4-12.3) fl Neut % (Auto) 67.9 (34.0-71.1) % Lymph % (Auto) 24.2 (19.3-51.7) % [place] % (Auto) 6.7 (4.7-12.5) % Eos % (Auto) 0.9 (0.7-5.8) Baso % (Auto) 0.1 (0.1-1.2) % Neut # (Auto) 9.49 H (1.56-6.13) K/mm3 Lymph # (Auto) 3.38 (1.18-3.74) K/mm3 [place] # (Auto) 0.93 H (0.24-0.36) K/mm3 Eos # (Auto) 0.12 (0.04-0.36) K/mm3 Baso # (Auto) 0.01 (0.01-0.08) K/mm3 C-Reactive Protein 3.1 H* (<1.0) mg/dL Med Orders - Current: Current Medications Acetaminophen (Tylenol) 650 mg PO Q4H PRN PRN Reason: Pain Last Admin: 12/18/19 14:15 Dose: 650 mg Clindamycin HCl (Cleocin) 150 mg PO Q8H [facility] Last Admin: 12/19/19 04:39 Dose: 150 mg Potassium Chloride/Dextrose/Sod Cl (D5 1/2 Ns W/ 20 Meq/L Kcl) 1,000 mls @ 50 mls/hr IV ASDIRECTED [facility] Last Admin: 12/19/19 08:25 Dose: 50 mls/hr Ondansetron HCl (Zofran Odt) 4 mg PO Q4H PRN PRN Reason: Nausea/Vomiting Last Admin: 12/19/19 07:39 Dose: 4 mg Oxycodone HCl (Oxycodone) 5 mg PO Q6H PRN PRN Reason: Abdominal Pain Last Admin: 12/19/19 04:39 Dose: 5 mg Prenat Multivit/[place]/Iron/Folic Ac ( Plus Iron) 1 each PO DAILY [facility] Last Admin: 12/18/19 11:37 Dose: 1 each Discontinued Medications Hydromorphone HCl (Dilaudid) 0.5 mg IVPUSH ONETIME ONE Stop: 12/17/19 05:33 Last Admin: 12/17/19 05:52 Dose: 0.5 mg Hydromorphone HCl (Dilaudid) 0.5 mg IVPUSH Q6H PRN PRN Reason: Pain (severe 7-10) Last Admin: 12/18/19 04:08 Dose: 0.5 mg Sodium Chloride (Normal Saline) 1,000 mls @ 75 mls/hr IV ONETIME ONE Stop: 12/17/19 19:18 Last Admin: 12/17/19 06:00 Dose: 75 mls/hr Lactated Ringer's (Ringers, Lactated) 1,000 mls @ 50 mls/hr IV ASDIRECTED [facility] Last Admin: 12/17/19 19:25 Dose: 50 mls/hr Lactated Ringer's (Ringers, Lactated) 1,000 mls @ 125 mls/hr IV ASDIRECTED [facility] Lidocaine/Sodium Bicarbonate (Buffered Lidocaine 1% In Ns 8.4%) 0.25 ml IDERM ONETIME PRN PRN Reason: Prior to IV Start Ondansetron HCl (Zofran) 4 mg IVPUSH ONETIME ONE Stop: 12/17/19 05:35 Last Admin: 12/17/19 05:52 Dose: 4 mg Propofol (Diprivan 20 Ml) Confirm Administered Dose 200 mg .ROUTE .STK-MED ONE Stop: 12/18/19 09:14 Propofol (Diprivan 20 Ml) Confirm Administered Dose 200 mg .ROUTE .STK-MED ONE Stop: 12/18/19 09:22 Sodium Chloride (Saline Flush) 10 ml FLUSH ASDIRECTED PRN PRN Reason: Keep Vein Open - Exam General: Alert, Oriented, Cooperative, No Acute Distress Lungs: Clear to Auscultation, Normal Respiratory Effort Cardiovascular: Regular Rate, Regular Rhythm, No Murmurs GI/Abdominal Exam: Soft, No Organomegaly, No Distention, No Abnormal Bruit, No Mass, Tender (diffusely) Extremities: Normal Inspection Skin: Warm, Dry, Intact Sepsis Event Note - Evaluation Sepsis Screening Result: No Definite Risk - Focused Exam Vital Signs: Vital Signs Temp Pulse Resp BP Pulse Ox 12/19/19 08:57 98.2 F 77 16 103/64 97 12/19/19 04:38 97.9 F 86 16 115/69 100 12/19/19 01:07 98.6 F 92 16 103/66 100 Date Exam was Performed: 12/19/19 Time Exam was Performed: 09:10 - Problem List Review Problem List Initiated/Reviewed/Updated: No - My Orders Last 24 Hours: Active Orders 24 hr Category Date Time Status Patient Status [ADT] Routine ADT 12/18/19 18:43 Active Regular Diet [DIET] Diet 12/18/19 Lunch Active D5 1/2 NS w/ 20 mEq/L KCl 1,000 ml Med 12/19/19 07:45 Active IV ASDIRECTED Vit with Ca/FA/Iron [ Plus Iron] Med 12/18/19 12:00 Active 1 each PO DAILY clindamycin HCL [Cleocin] Med 12/18/19 12:00 Active 150 mg PO Q8H oxyCODONE Med 12/18/19 14:57 Active 5 mg PO Q6H PRN Medication Orders Acetaminophen (Tylenol) 650 mg PO Q4H PRN PRN Reason: Pain Last Admin: 12/18/19 14:15 Dose: 650 mg Admin: 12/17/19 17:59 Dose: 650 mg Clindamycin HCl (Cleocin) 150 mg PO Q8H [facility] Last Admin: 12/19/19 04:39 Dose: 150 mg Admin: 12/18/19 20:50 Dose: 150 mg Admin: 12/18/19 11:43 Dose: 150 mg Potassium Chloride/Dextrose/Sod Cl (D5 1/2 Ns W/ 20 Meq/L Kcl) 1,000 mls @ 50 mls/hr IV ASDIRECTED [facility] Last Admin: 12/19/19 08:25 Dose: 50 mls/hr Ondansetron HCl (Zofran Odt) 4 mg PO Q4H PRN PRN Reason: Nausea/Vomiting Last Admin: 12/19/19 07:39 Dose: 4 mg Admin: 12/18/19 19:24 Dose: 4 mg Admin: 12/18/19 14:38 Dose: 4 mg Admin: 12/17/19 21:31 Dose: 4 mg Oxycodone HCl (Oxycodone) 5 mg PO Q6H PRN PRN Reason: Abdominal Pain Last Admin: 12/19/19 04:39 Dose: 5 mg Admin: 12/18/19 15:13 Dose: 5 mg Prenat Multivit/[place]/Iron/Folic Ac ( Plus Iron) 1 each PO DAILY [facility] Last Admin: 12/18/19 11:37 Dose: 1 each - Plan Plan (Free Text/Narrative):: Patient has segmental colon inflammation. Considerations include IBD vs idiopathic colitis. We will await biopsy results - MRI abdomen/Pelvis as an outpatient - Continue abx - Start IVF D5 1/2 NS with 20 KCL at 50cc/hr given persistent vomiting. - Pain is improving, No stools since yesterday. Continue current pain management - Can discharge to home when symptoms improve.
[2019-12-19] MEDS: Prenatal Multivitamin with Calcium/Folic Acid/Iron Tab PO SCH (09:50)
[2019-12-19] MEDS: HYDROmorphone 0.5 MG/0.5 ML Syringe IVPUSH PRN ×2 (11:51→18:30)
--- NOTE | 2019-12-19 17:18 | PCM.SN ---
- Free Text/Narrative Note: Patient has persistent vomiting and not tolerating PO. No BMs today. Part of this may be Hyperemesis gravidarum. - will increase IVF to 125 cc/hr - add Reglan as a first line antiemetic along with Pyridoxine. Zofran 2nd line - change abx from Clinda to IV Ceftriaxone - Dilaudid 0.5 mg q6h PRN for pain. If tolerating PO, will give Tylenol or Oxy - Will monitor
[2019-12-19] MEDS: Metoclopramide 10 MG/2 ML SDV IVPUSH SCH ×2 (18:14→22:55)
[2019-12-19] MEDS: cefTRIAXone 1 GM in Sodium Chloride 0.9% 100 ML IV SCH (18:17)
[2019-12-19] MEDS: Vitamin B6-pyridOXINE 50 MG Tab PO SCH (18:28)
[2019-12-19] MEDS: D5 1/2 NS w/ 20 mEq/L KCl 1,000 ML IV SCH (20:02)
[2019-12-20] MEDS: HYDROmorphone 0.5 MG/0.5 ML Syringe IVPUSH PRN (03:54)
[2019-12-20] MEDS: D5 1/2 NS w/ 20 mEq/L KCl 1,000 ML IV SCH ×3 (03:54→20:27)
[2019-12-20] MEDS: Metoclopramide 10 MG/2 ML SDV IVPUSH SCH ×4 (04:00→22:00)
[2019-12-20] MEDS: Vitamin B6-pyridOXINE 50 MG Tab PO SCH (08:28)
[2019-12-20] MEDS: Prenatal Multivitamin with Calcium/Folic Acid/Iron Tab PO SCH (08:30)
[2019-12-20] MEDS ORDERED: Magnesium Hydroxide 400 MG/5 ML Susp 30 ML Cup PO ONE (15:00)
[2019-12-20] MEDS: cefTRIAXone 1 GM in Sodium Chloride 0.9% 100 ML IV SCH (16:23)
[2019-12-20] MEDS: oxyCODONE 5 MG Tab PO PRN (17:02)
--- NOTE | 2019-12-20 18:30 | PCM.SN ---
- Free Text/Narrative Note: Procedure Note Addendum: scope was not advanced to cecum to avoid traumatizing the inflamed colon ranging from the distal transverse colon to proximal sigmoid colon.
--- NOTE | 2019-12-20 18:56 | PCM.SURGPN ---
- General Info Date of Service: 12/20/19 POD#: 2 Functional Status: Reports: Pain Controlled - Review of Systems General: Reports: No Symptoms HEENT: Reports: No Symptoms Pulmonary: Reports: No Symptoms Cardiovascular: Reports: No Symptoms Gastrointestinal: Reports: Abdominal Pain Genitourinary: Reports: No Symptoms Musculoskeletal: Reports: No Symptoms Skin: Reports: No Symptoms Neurological: Reports: No Symptoms Psychiatric: Reports: No Symptoms - Patient Data Vitals - Most Recent: Last Vital Signs Temp 98.1 F 12/20/19 15:17 Pulse 86 12/20/19 15:17 Resp 16 12/20/19 15:17 BP 124/70 12/20/19 15:17 Pulse Ox 100 12/20/19 15:17 Orthostatic Blood Pressure [ 122/82 Standing] Orthostatic Blood Pressure [ 129/77 Supine] Weight - Most Recent: 70.307 kg I&O - Last 24 Hours: Intake & Output 12/20/19 12/20/19 12/20/19 06:59 14:59 22:59 Intake Total 2084 420 1971 Output Total 900 500 Balance 1184 -80 1971 Lab Results Last 24 Hrs: Laboratory Results - last 24 hr 12/20/19 12/20/19 Range/Units 05:14 05:14 WBC 10.43 H (3.98-10.04) K/mm3 RBC 3.72 L (3.98-5.22) M/mm3 Hgb 11.0 L (11.2-15.7) gm/dl Hct 33.7 L (34.1-44.9) % MCV 90.6 (79.4-94.8) fl MCH 29.6 (25.6-32.2) pg MCHC 32.6 (32.2-35.5) g/dl RDW Std Deviation 41.9 (36.4-46.3) fL Plt Count 309 (182-369) K/mm3 MPV 10.6 (9.4-12.3) fl Neut % (Auto) 68.2 (34.0-71.1) % Lymph % (Auto) 21.9 (19.3-51.7) % [place] % (Auto) 8.5 (4.7-12.5) % Eos % (Auto) 1.2 (0.7-5.8) Baso % (Auto) 0.1 (0.1-1.2) % Neut # (Auto) 7.11 H (1.56-6.13) K/mm3 Lymph # (Auto) 2.28 (1.18-3.74) K/mm3 [place] # (Auto) 0.89 H (0.24-0.36) K/mm3 Eos # (Auto) 0.13 (0.04-0.36) K/mm3 Baso # (Auto) 0.01 (0.01-0.08) K/mm3 Sodium 136 (136-145) mEq/L Potassium 3.5 (3.5-5.1) mEq/L Chloride 102 (98-107) mEq/L Carbon Dioxide 23 (21-32) mEq/L Anion Gap 14.5 (5-15) BUN 4 L (7-18) mg/dL Creatinine 0.5 L (0.55-1.02) mg/dL Est Cr Clr Drug Dosing 130.12 mL/min Estimated GFR (MDRD) > 60 (>60) mL/min BUN/Creatinine Ratio 8.0 L (14-18) Glucose 103 (74-106) mg/dL Calcium 8.3 L (8.5-10.1) mg/dL Total Bilirubin 0.3 (0.2-1.0) mg/dL AST 17 (15-37) U/L ALT 26 (14-59) U/L Alkaline Phosphatase 42 L (46-116) U/L Total Protein 6.8 (6.4-8.2) g/dl Albumin 2.9 L (3.4-5.0) g/dl Globulin 3.9 gm/dL Albumin/Globulin Ratio 0.7 L (1-2) Med Orders - Current: Current Medications Acetaminophen (Tylenol) 650 mg PO Q4H PRN PRN Reason: Pain Last Admin: 12/18/19 14:15 Dose: 650 mg Docusate Sodium (Colace) 100 mg PO BID [facility] Hydromorphone HCl (Dilaudid) 0.5 mg IVPUSH Q6H PRN PRN Reason: Pain Last Admin: 12/20/19 03:54 Dose: 0.5 mg Potassium Chloride/Dextrose/Sod Cl (D5 1/2 Ns W/ 20 Meq/L Kcl) 1,000 mls @ 125 mls/hr IV ASDIRECTED [facility] Last Admin: 12/20/19 12:22 Dose: 125 mls/hr Ceftriaxone Sodium 1 gm/ (Sodium Chloride) 100 mls @ 200 mls/hr IV Q24H [facility] Last Admin: 12/20/19 16:23 Dose: 200 mls/hr Metoclopramide HCl (Reglan) 5 mg IVPUSH Q6H [facility] Last Admin: 12/20/19 16:23 Dose: 5 mg Ondansetron HCl (Zofran Odt) 4 mg PO Q4H PRN PRN Reason: Nausea/Vomiting Last Admin: 12/19/19 12:26 Dose: 4 mg Oxycodone HCl (Oxycodone) 5 mg PO Q6H PRN PRN Reason: Abdominal Pain Last Admin: 12/20/19 17:02 Dose: 5 mg Prenat Multivit/F[place]/Iron/Folic Ac ( Plus Iron) 1 each PO DAILY [facility] Last Admin: 12/20/19 08:30 Dose: 1 each Pyridoxine HCl (Vitamin B6-Pyridoxine) 25 mg PO DAILY [facility] Last Admin: 12/20/19 08:28 Dose: 25 mg Discontinued Medications Clindamycin HCl (Cleocin) 150 mg PO Q8H [facility] Last Admin: 12/19/19 16:03 Dose: Not Given Hydromorphone HCl (Dilaudid) 0.5 mg IVPUSH ONETIME ONE Stop: 12/17/19 05:33 Last Admin: 12/17/19 05:52 Dose: 0.5 mg Hydromorphone HCl (Dilaudid) 0.5 mg IVPUSH Q6H PRN PRN Reason: Pain (severe 7-10) Last Admin: 12/18/19 04:08 Dose: 0.5 mg Sodium Chloride (Normal Saline) 1,000 mls @ 75 mls/hr IV ONETIME ONE Stop: 12/17/19 19:18 Last Admin: 12/17/19 06:00 Dose: 75 mls/hr Lactated Ringer's (Ringers, Lactated) 1,000 mls [facility] Last Admin: 12/17/19 19:25 Dose: 50 mls/hr Lactated Ringer's (Ringers, Lactated) 1,000 mls @ [facility] Potassium Chloride/Dextrose/Sod Cl (D5 1/2 Ns W/ 20 Meq/L Kcl) 1,000 mls @ 50 mls/hr IV ASDIRECTED [facility] Last Admin: 12/19/19 08:25 Dose: 50 mls/hr Lidocaine/Sodium Bicarbonate (Buffered Lidocaine 1% In Ns 8.4%) 0.25 ml IDERM ONETIME PRN PRN Reason: Prior to IV Start Magnesium Hydroxide (Milk Of Magnesia) 30 ml PO ONETIME ONE Stop: 12/20/19 15:01 Last Admin: 12/20/19 14:45 Dose: Not Given Ondansetron HCl (Zofran) 4 mg IVPUSH ONETIME ONE Stop: 12/17/19 05:35 Last Admin: 12/17/19 05:52 Dose: 4 mg Propofol (Diprivan 20 Ml) Confirm Administered Dose 200 mg .ROUTE .STK-MED ONE Stop: 12/18/19 09:14 Propofol (Diprivan 20 Ml) Confirm Administered Dose 200 mg .ROUTE .STK-MED ONE Stop: 12/18/19 09:22 Sodium Chloride (Saline Flush) 10 ml FLUSH ASDIRECTED PRN PRN Reason: Keep Vein Open - Exam General: Alert, Oriented, Cooperative Lungs: Clear to Auscultation, Normal Respiratory Effort Cardiovascular: Regular Rate, Regular Rhythm GI/Abdominal Exam: Soft, No Organomegaly, No Distention, No Abnormal Bruit, No Mass, Pelvis Stable, Tender (mildly) Extremities: Normal Inspection Skin: Warm, Dry, Intact Sepsis Event Note - Evaluation Sepsis Screening Result: No Definite Risk - Focused Exam Vital Signs: Vital Signs Temp Pulse Resp BP Pulse Ox 12/20/19 15:17 98.1 F 86 16 124/70 100 12/20/19 12:04 98.1 F 75 16 122/97 H 100 12/20/19 08:32 98.2 F 88 18 117/81 100 Date Exam was Performed: 12/20/19 Time Exam was Performed: 18:30 - Problem List Review Problem List Initiated/Reviewed/Updated: No - My Orders Last 24 Hours: Active Orders 24 hr Category Date Time Status Docusate Sodium [Colace] Med 12/20/19 21:00 Active 100 mg PO BID Medication Orders Acetaminophen (Tylenol) 650 mg PO Q4H PRN PRN Reason: Pain Last Admin: 12/18/19 14:15 Dose: 650 mg Admin: 12/17/19 17:59 Dose: 650 mg Docusate Sodium (Colace) 100 mg PO BID [facility] Hydromorphone HCl (Dilaudid) 0.5 mg IVPUSH Q6H PRN PRN Reason: Pain Last Admin: 12/20/19 03:54 Dose: 0.5 mg Admin: 12/19/19 18:30 Dose: 0.5 mg Admin: 12/19/19 11:51 Dose: 0.5 mg Potassium Chloride/Dextrose/Sod Cl (D5 1/2 Ns W/ 20 Meq/L Kcl) 1,000 mls @ 125 mls/hr IV ASDIRECTED [facility] Last Admin: 12/20/19 12:22 Dose: 125 mls/hr Infusion: 12/20/19 11:54 Dose: 125 mls/hr Admin: 12/20/19 03:54 Dose: 125 mls/hr Infusion: 12/20/19 03:54 Dose: 125 mls/hr Admin: 12/19/19 20:02 Dose: 125 mls/hr Ceftriaxone Sodium 1 gm/ (Sodium Chloride) 100 mls @ 200 mls/hr IV Q24H [facility] Last Admin: 12/20/19 16:23 Dose: 200 mls/hr Infusion: 12/19/19 18:47 Dose: 200 mls/hr Admin: 12/19/19 18:17 Dose: 200 mls/hr Metoclopramide HCl (Reglan) 5 mg IVPUSH Q6H [facility] Last Admin: 12/20/19 16:23 Dose: 5 mg Admin: 12/20/19 10:17 Dose: 5 mg Admin: 12/20/19 04:00 Dose: 5 mg Admin: 12/19/19 22:55 Dose: 5 mg Admin: 12/19/19 18:14 Dose: 5 mg Ondansetron HCl (Zofran Odt) 4 mg PO Q4H PRN PRN Reason: Nausea/Vomiting Last Admin: 12/19/19 12:26 Dose: 4 mg Admin: 12/19/19 07:39 Dose: 4 mg Admin: 12/18/19 19:24 Dose: 4 mg Admin: 12/18/19 14:38 Dose: 4 mg Admin: 12/17/19 21:31 Dose: 4 mg Oxycodone HCl (Oxycodone) 5 mg PO Q6H PRN PRN Reason: Abdominal Pain Last Admin: 12/20/19 17:02 Dose: 5 mg Admin: 12/19/19 04:39 Dose: 5 mg Admin: 12/18/19 15:13 Dose: 5 mg Prenat Multivit/Falls/Iron/Folic Ac ( Plus Iron) 1 each PO DAILY [facility] Last Admin: 12/20/19 08:30 Dose: 1 each Admin: 12/19/19 09:50 Dose: 1 each Admin: 12/18/19 11:37 Dose: 1 each Pyridoxine HCl (Vitamin B6-Pyridoxine) 25 mg PO DAILY [facility] Last Admin: 12/20/19 08:28 Dose: 25 mg Admin: 12/19/19 18:28 Dose: 25 mg - Plan Plan (Free Text/Narrative):: Patient is 8 weeks and presented with has abdominal pain, nausea and vomiting. Path shows ischemic type changes in the distal transverse colon and descending colon suggesting ischemic colitis. Part of her nausea and vomiting may be due to . Abdominal pain has improved but she continues to have persistent emesis. -Continue current antiemetics and current pain regimen -Continue antibiotics, WBC is normal now. -continue IVF support -continue reg diet as tolerated -No BMs since yesterday
[2019-12-20] MEDS: Docusate Sodium 100 MG Cap PO SCH (20:27)
[2019-12-21] MEDS: Acetaminophen 325 MG Tab PO PRN (02:45)
[2019-12-21] MEDS: D5 1/2 NS w/ 20 mEq/L KCl 1,000 ML IV SCH (05:07)
[2019-12-21] MEDS: Metoclopramide 10 MG/2 ML SDV IVPUSH SCH ×3 (05:08→16:39)
[2019-12-21] MEDS: Prenatal Multivitamin with Calcium/Folic Acid/Iron Tab PO SCH (08:26)
[2019-12-21] MEDS: Vitamin B6-pyridOXINE 50 MG Tab PO SCH (08:26)
[2019-12-21] MEDS: Docusate Sodium 100 MG Cap PO SCH (08:26)
--- NOTE | 2019-12-21 08:36 | PCM.SURGPN ---
- General Info Date of Service: 12/21/19 POD#: 3 Functional Status: Reports: Pain Controlled, Tolerating Diet, Ambulating - Review of Systems General: Reports: No Symptoms HEENT: Reports: No Symptoms Pulmonary: Reports: No Symptoms Cardiovascular: Reports: No Symptoms Gastrointestinal: Reports: Abdominal Pain (mild), Vomiting Genitourinary: Reports: No Symptoms Musculoskeletal: Reports: No Symptoms Skin: Reports: No Symptoms Neurological: Reports: No Symptoms Psychiatric: Reports: No Symptoms - Patient Data Vitals - Most Recent: Last Vital Signs Temp 98.2 F 12/21/19 00:43 Pulse 85 12/21/19 00:43 Resp 16 12/21/19 00:43 BP 110/56 L 12/21/19 00:43 Pulse Ox 100 12/21/19 00:43 Orthostatic Blood Pressure [ 122/82 Standing] Orthostatic Blood Pressure [ 129/77 Supine] Weight - Most Recent: 70.806 kg I&O - Last 24 Hours: Intake & Output 12/20/19 12/21/19 12/21/19 22:59 06:59 14:59 Intake Total 2212 2232 Output Total 200 Balance 2212 2032 Med Orders - Current: Current Medications Acetaminophen (Tylenol) 650 mg PO Q4H PRN PRN Reason: Pain Last Admin: 12/21/19 02:45 Dose: 650 mg Docusate Sodium (Colace) 100 mg PO BID [facility] Last Admin: 12/21/19 08:26 Dose: 100 mg Hydromorphone HCl (Dilaudid) 0.5 mg IVPUSH Q6H PRN PRN Reason: Pain Last Admin: 12/20/19 03:54 Dose: 0.5 mg Potassium Chloride/Dextrose/Sod Cl (D5 1/2 Ns W/ 20 Meq/L Kcl) 1,000 mls @ 125 mls/hr IV ASDIRECTED [facility] Last Admin: 12/21/19 05:07 Dose: 125 mls/hr Ceftriaxone Sodium 1 gm/ (Sodium Chloride) 100 mls @ 200 mls/hr IV Q24H [facility] Last Admin: 12/20/19 16:23 Dose: 200 mls/hr Metoclopramide HCl (Reglan) 5 mg IVPUSH Q6H [facility] Last Admin: 12/21/19 05:08 Dose: 5 mg Ondansetron HCl (Zofran Odt) 4 mg PO Q4H PRN PRN Reason: Nausea/Vomiting Last Admin: 12/19/19 12:26 Dose: 4 mg Oxycodone HCl (Oxycodone) 5 mg PO Q6H PRN PRN Reason: Abdominal Pain Last Admin: 12/20/19 17:02 Dose: 5 mg Prenat Multivit/Process Expert/Iron/Folic Ac ( Plus Iron) 1 each PO DAILY [facility] Last Admin: 12/21/19 08:26 Dose: 1 each Pyridoxine HCl (Vitamin B6-Pyridoxine) 25 mg PO DAILY [facility] Last Admin: 12/21/19 08:26 Dose: 25 mg Discontinued Medications Clindamycin HCl (Cleocin) 150 mg PO Q8H [facility] Last Admin: 12/19/19 16:03 Dose: Not Given Hydromorphone HCl (Dilaudid) 0.5 mg IVPUSH ONETIME ONE Stop: 12/17/19 05:33 Last Admin: 12/17/19 05:52 Dose: 0.5 mg Hydromorphone HCl (Dilaudid) 0.5 mg IVPUSH Q6H PRN PRN Reason: Pain (severe 7-10) Last Admin: 12/18/19 04:08 Dose: 0.5 mg Sodium Chloride (Normal Saline) 1,000 mls @ 75 mls/hr IV ONETIME ONE Stop: 12/17/19 19:18 Last Admin: 12/17/19 06:00 Dose: 75 mls/hr Lactated Ringer's (Ringers, Lactated) 1,000 mls @ 50 mls/hr IV ASDIRECTED [facility] Last Admin: 12/17/19 19:25 Dose: 50 mls/hr Lactated Ringer's (Ringers, Lactated) 1,000 mls @ 125 mls/hr IV ASDIRECTED [facility] Potassium Chloride/Dextrose/Sod Cl (D5 1/2 Ns W/ 20 Meq/L Kcl) 1,000 mls @ 50 mls/hr IV ASDIRECTED [facility] Last Admin: 12/19/19 08:25 Dose: 50 mls/hr Lidocaine/Sodium Bicarbonate (Buffered Lidocaine 1% In Ns 8.4%) 0.25 ml IDERM ONETIME PRN PRN Reason: Prior to IV Start Magnesium Hydroxide (Milk Of Magnesia) 30 ml PO ONETIME ONE Stop: 12/20/19 15:01 Last Admin: 12/20/19 14:45 Dose: Not Given Ondansetron HCl (Zofran) 4 mg IVPUSH ONETIME ONE Stop: 12/17/19 05:35 Last Admin: 12/17/19 05:52 Dose: 4 mg Propofol (Diprivan 20 Ml) Confirm Administered Dose 200 mg .ROUTE .STK-MED ONE Stop: 12/18/19 09:14 Propofol (Diprivan 20 Ml) Confirm Administered Dose 200 mg .ROUTE .STK-MED ONE Stop: 12/18/19 09:22 Sodium Chloride (Saline Flush) 10 ml FLUSH ASDIRECTED PRN PRN Reason: Keep Vein Open - Exam Wound/Incisions: Healing Well General: Alert, Oriented, Cooperative Lungs: Clear to Auscultation, Normal Respiratory Effort Cardiovascular: Regular Rate, Regular Rhythm, No Murmurs GI/Abdominal Exam: Soft, No Organomegaly, No Distention, No Mass, Tender (mildly ) Skin: Warm, Dry, Intact Sepsis Event Note - Evaluation Sepsis Screening Result: No Definite Risk - Focused Exam Vital Signs: Vital Signs Temp Pulse Resp BP Pulse Ox 12/21/19 00:43 98.2 F 85 16 110/56 L 100 Date Exam was Performed: 12/21/19 Time Exam was Performed: 08:31 - Problem List Review Problem List Initiated/Reviewed/Updated: No - My Orders Last 24 Hours: Active Orders 24 hr Category Date Time Status Echo 2D wo Cont [US] Routine Exams 12/21/19 08:28 Ordered Docusate Sodium [Colace] Med 12/20/19 21:00 Active 100 mg PO BID Medication Orders Acetaminophen (Tylenol) 650 mg PO Q4H PRN PRN Reason: Pain Last Admin: 12/21/19 02:45 Dose: 650 mg Admin: 12/18/19 14:15 Dose: 650 mg Admin: 12/17/19 17:59 Dose: 650 mg Docusate Sodium (Colace) 100 mg PO BID [facility] Last Admin: 12/21/19 08:26 Dose: 100 mg Admin: 12/20/19 20:27 Dose: 100 mg Hydromorphone HCl (Dilaudid) 0.5 mg IVPUSH Q6H PRN PRN Reason: Pain Last Admin: 12/20/19 03:54 Dose: 0.5 mg Admin: 12/19/19 18:30 Dose: 0.5 mg Admin: 12/19/19 11:51 Dose: 0.5 mg Potassium Chloride/Dextrose/Sod Cl (D5 1/2 Ns W/ 20 Meq/L Kcl) 1,000 mls @ 125 mls/hr IV ASDIRECTED [facility] Last Admin: 12/21/19 05:07 Dose: 125 mls/hr Infusion: 12/21/19 04:27 Dose: 125 mls/hr Admin: 12/20/19 20:27 Dose: 125 mls/hr Infusion: 12/20/19 20:22 Dose: 125 mls/hr Admin: 12/20/19 12:22 Dose: 125 mls/hr Infusion: 12/20/19 11:54 Dose: 125 mls/hr Admin: 12/20/19 03:54 Dose: 125 mls/hr Infusion: 12/20/19 03:54 Dose: 125 mls/hr Admin: 12/19/19 20:02 Dose: 125 mls/hr Ceftriaxone Sodium 1 gm/ (Sodium Chloride) 100 mls @ 200 mls/hr IV Q24H [facility] Last Admin: 12/20/19 16:23 Dose: 200 mls/hr Infusion: 12/19/19 18:47 Dose: 200 mls/hr Admin: 12/19/19 18:17 Dose: 200 mls/hr Metoclopramide HCl (Reglan) 5 mg IVPUSH Q6H [facility] Last Admin: 12/21/19 05:08 Dose: 5 mg Admin: 12/20/19 22:00 Dose: 5 mg Admin: 12/20/19 16:23 Dose: 5 mg Admin: 12/20/19 10:17 Dose: 5 mg Admin: 12/20/19 04:00 Dose: 5 mg Admin: 12/19/19 22:55 Dose: 5 mg Admin: 12/19/19 18:14 Dose: 5 mg Ondansetron HCl (Zofran Odt) 4 mg PO Q4H PRN PRN Reason: Nausea/Vomiting Last Admin: 12/19/19 12:26 Dose: 4 mg Admin: 12/19/19 07:39 Dose: 4 mg Admin: 12/18/19 19:24 Dose: 4 mg Admin: 12/18/19 14:38 Dose: 4 mg Admin: 12/17/19 21:31 Dose: 4 mg Oxycodone HCl (Oxycodone) 5 mg PO Q6H PRN PRN Reason: Abdominal Pain Last Admin: 12/20/19 17:02 Dose: 5 mg Admin: 12/19/19 04:39 Dose: 5 mg Admin: 12/18/19 15:13 Dose: 5 mg Prenat Multivit/[place]/Iron/Folic Ac ( Plus Iron) 1 each PO DAILY [facility] Last Admin: 12/21/19 08:26 Dose: 1 each Admin: 12/20/19 08:30 Dose: 1 each Admin: 12/19/19 09:50 Dose: 1 each Admin: 12/18/19 11:37 Dose: 1 each Pyridoxine HCl (Vitamin B6-Pyridoxine) 25 mg PO DAILY [facility] Last Admin: 12/21/19 08:26 Dose: 25 mg Admin: 12/20/19 08:28 Dose: 25 mg Admin: 12/19/19 18:28 Dose: 25 mg - Plan Plan (Free Text/Narrative):: Patient had abdominal pain, nausea and vomiting with path results suggestive of ischemic colitis. In speaking to patient she reports that her aunt had heart failure at a young age and diet at 55 yrs. She denies any personal or family hx of coagulopathy, no extremity swelling, no SOB. She tolerated food last night but vomited small amount this AM. Had BM yesterday and was not bloody. Only needed Tylenol for pain overnight -Saline lock IVF if she tolerates breakfast this AM -Will obtain an Echocardiogram to rule out heart failure -continue current antiemetics -Possible discharge today after the ECho
[2019-12-21] MEDS: cefTRIAXone 1 GM in Sodium Chloride 0.9% 100 ML IV SCH (16:45)
--- NOTE | 2019-12-21 17:10 | PCM.DCSUM1 ---
Discharge Summary - Hospital Course Free Text/Narrative:: Patient is now 8 weeks and presented with abdominal pain and hematochezia. She underwent a colonoscopy to transverse colon on 12/14 which revealed mucosal inflammation from the distal transverse to sigmoid. Path revealed ischemic type changes. The patient was admitted and treated with IVF, antiemetics, pain control and antibiotics. She improved her nausea, vomiting and abdominal pain. Hematochezia also resolved. Patient has no history of coagulopathy but has history of CHF in her aunt. WBC trended back to normal. Echocardiogram was obtained. The patient will be discharged today to home and continue her care with her OBGYN. She is advised to keep hydrated. We will call the patient with the results of the Echocardiogram. Diagnosis: Stroke: No - Discharge Data Discharge Date: 12/21/19 Discharge Disposition: Home, Self-Care 01 Condition: Good - Referral to Home Health Primary Care Physician: Davis Young MD - Patient Summary/Data Hospital Course: see above - Patient Instructions Diet: Regular Diet as Tolerated (with plenty of fluids) Activity: As Tolerated Driving: May Drive Today Showering/Bathing: May Shower Notify Provider of: Fever, Increased Pain Other/Special Instructions: -Drink plenty of fluids daily. -Take antiemetics as needed - Discharge Plan *PRESCRIPTION DRUG MONITORING PROGRAM REVIEWED*: Not Applicable *COPY OF PRESCRIPTION DRUG MONITORING REPORT IN PATIENT [place]: Not Applicable Home Medications: Home Meds [id number]/Iron Fumarate/FA/DSS [ 19 Tablet] 1 tab PO DAILY 12/17/19 [ History] Oxygen Therapy Mode: Room Air Patient Handouts: Steps to Quit Smoking Forms: ED Department Discharge Referrals: Davis Young MD [Primary Care Provider] - Farhat Cavanaugh MD [Physician] - (Follow up with PCP. Dr. Cavanaugh's office will call you with Echocardiogram results.) - Discharge Summary/Plan Comment DC Time >30 min.: Yes - Patient Data Vitals - Most Recent: Last Vital Signs Temp 98.1 F 12/21/19 14:56 Pulse 86 12/21/19 14:56 Resp 16 12/21/19 14:56 BP 111/51 L 12/21/19 14:56 Pulse Ox 100 12/21/19 14:56 Orthostatic Blood Pressure [ 122/82 Standing] Orthostatic Blood Pressure [ 129/77 Supine] Weight - Most Recent: 70.806 kg I&O - Last 24 hours: Intake & Output 12/21/19 12/21/19 12/21/19 06:59 14:59 22:59 Intake Total 2232 120 40 Output Total 200 Balance 2032 120 40 Med Orders - Current: Current Medications Acetaminophen (Tylenol) 650 mg PO Q4H PRN PRN Reason: Pain Last Admin: 12/21/19 02:45 Dose: 650 mg Docusate Sodium (Colace) 100 mg PO BID [facility] Last Admin: 12/21/19 08:26 Dose: 100 mg Potassium Chloride/Dextrose/Sod Cl (D5 1/2 Ns W/ 20 Meq/L Kcl) 1,000 mls @ 125 mls/hr IV ASDIRECTED [facility] Last Admin: 12/21/19 05:07 Dose: 125 mls/hr Ceftriaxone Sodium 1 gm/ (Sodium Chloride) 100 mls @ 200 mls/hr IV Q24H [facility] Last Admin: 12/21/19 16:45 Dose: 200 mls/hr Metoclopramide HCl (Reglan) 5 mg IVPUSH Q6H [facility] Last Admin: 12/21/19 16:39 Dose: 5 mg Ondansetron HCl (Zofran Odt) 4 mg PO Q4H PRN PRN Reason: Nausea/Vomiting Last Admin: 12/19/19 12:26 Dose: 4 mg Oxycodone HCl (Oxycodone) 5 mg PO Q6H PRN PRN Reason: Abdominal Pain Last Admin: 12/20/19 17:02 Dose: 5 mg Prenat Multivit/Plate Shear Operator/Iron/Folic Ac ( Plus Iron) 1 each PO DAILY [facility] Last Admin: 12/21/19 08:26 Dose: 1 each Pyridoxine HCl (Vitamin B6-Pyridoxine) 25 mg PO DAILY [facility] Last Admin: 12/21/19 08:26 Dose: 25 mg Discontinued Medications Clindamycin HCl (Cleocin) 150 mg PO Q8H [facility] Last Admin: 12/19/19 16:03 Dose: Not Given Hydromorphone HCl (Dilaudid) 0.5 mg IVPUSH ONETIME ONE Stop: 12/17/19 05:33 Last Admin: 12/17/19 05:52 Dose: 0.5 mg Hydromorphone HCl (Dilaudid) 0.5 mg IVPUSH Q6H PRN PRN Reason: Pain (severe 7-10) Last Admin: 12/18/19 04:08 Dose: 0.5 mg Hydromorphone HCl (Dilaudid) 0.5 mg IVPUSH Q6H PRN PRN Reason: Pain Last Admin: 12/20/19 03:54 Dose: 0.5 mg Sodium Chloride (Normal Saline) 1,000 mls @ 75 mls/hr IV ONETIME ONE Stop: 12/17/19 19:18 Last Admin: 12/17/19 06:00 Dose: 75 mls/hr Lactated Ringer's (Ringers, Lactated) 1,000 mls @ 50 mls/hr IV ASDIRECTED [facility] Last Admin: 12/17/19 19:25 Dose: 50 mls/hr Lactated Ringer's (Ringers, Lactated) 1,000 mls @ 125 mls/hr IV ASDIRECTED [facility] Potassium Chloride/Dextrose/Sod Cl (D5 1/2 Ns W/ 20 Meq/L Kcl) 1,000 mls @ 50 mls/hr IV ASDIRECTED [facility] Last Admin: 12/19/19 08:25 Dose: 50 mls/hr Lidocaine/Sodium Bicarbonate (Buffered Lidocaine 1% In Ns 8.4%) 0.25 ml IDERM ONETIME PRN PRN Reason: Prior to IV Start Magnesium Hydroxide (Milk Of Magnesia) 30 ml PO ONETIME ONE Stop: 12/20/19 15:01 Last Admin: 12/20/19 14:45 Dose: Not Given Ondansetron HCl (Zofran) 4 mg IVPUSH ONETIME ONE Stop: 12/17/19 05:35 Last Admin: 12/17/19 05:52 Dose: 4 mg Propofol (Diprivan 20 Ml) Confirm Administered Dose 200 mg .ROUTE .STK-MED ONE Stop: 12/18/19 09:14 Propofol (Diprivan 20 Ml) Confirm Administered Dose 200 mg .ROUTE .STK-MED ONE Stop: 12/18/19 09:22 Sodium Chloride (Saline Flush) 10 ml FLUSH ASDIRECTED PRN PRN Reason: Keep Vein Open
== END 2019-12-21 18:10 | disposition home or self-care (01) | DRG 566 ==
LOC: JD.ED 04:25 → JD.MS 06:04 → OBSVTOIN 12-18 18:43
PROVIDERS: ADMIT Surgery; ATTEND Surgery
PROC: 0DBM8ZX Excision of Descending Colon, Via Natural or Artificial Opening Endoscopic, Diagnostic (ICD-10-PCS; principal; 2019-12-18)
PROC: 0DBL8ZX Excision of Transverse Colon, Via Natural or Artificial Opening Endoscopic, Diagnostic (ICD-10-PCS; 2019-12-18)
PROC: 0DBN8ZX Excision of Sigmoid Colon, Via Natural or Artificial Opening Endoscopic, Diagnostic (ICD-10-PCS; 2019-12-18)
DX: O99.611 Diseases of the digestive system complicating pregnancy, first trimester (principal); Z3A.08 8 weeks gestation of pregnancy; K52.9 Noninfective gastroenteritis and colitis, unspecified; Z88.0 Allergy status to penicillin; E66.9 Obesity, unspecified; O99.211 Obesity complicating pregnancy, first trimester; Z87.891 Personal history of nicotine dependence; K55.9 Vascular disorder of intestine, unspecified
CPT/HCPCS: 00811; 36415; 80053; 85014; 85018; 85025; 85652; 86140; 93306; 96361; 96374; 96375; 96376; 99284; 99284-25; A9270-GY; G0378; J0696; J1170; J2405; J2704; J2765; J3480; J7030; J7050; J7120

== ENCOUNTER 2020-07-08 06:40 | Inpatient (IN) | payer BC, MEDICAID ==
[2020-07-08] MEDS ORDERED: Sodium Chloride 0.9% 10 ML Syringe FLUSH PRN (07:09)
[2020-07-08] MEDS ORDERED: Citric Acid/Sodium Citrate Solution 30 ML Cup PO ONE (07:09)
[2020-07-08] MEDS ORDERED: Oxytocin/Lactated Ringers 20 UNIT/1,000 ML BAG IV SCH (07:15)
[2020-07-08] MEDS ORDERED: ePHEDrine 50 MG/ML SDV IVPUSH PRN ×3 (07:17→17:17)
[2020-07-08] MEDS ORDERED: fentaNYL 100 MCG/2 ML SDV EPIDUR PRN (07:17)
[2020-07-08] MEDS ORDERED: diphenhydrAMINE 50 MG/ML SDV IVPUSH PRN ×4 (07:17→17:17)
[2020-07-08] MEDS ORDERED: Bupivacaine/fentaNYL/NS 100 ML Bag EPIDUR PRN (07:17)
[2020-07-08] MEDS ORDERED: Lactated Ringers 1,000 ML ONE ×3 (07:20→15:12)
[2020-07-08] MEDS: Lactated Ringers 1,000 ML IV SCH ×2 (07:24→08:10)
[2020-07-08] MEDS ORDERED: Clindamycin Phosphate in D5W 900 MG in Premix Bag 1 BAG IV ONE ×2 (07:30)
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
[2020-07-08] MEDS ORDERED: Metoclopramide 10 MG/2 ML SDV IVPUSH ONE (08:00)
[2020-07-08] MEDS ORDERED: Phenylephrine 1% 10 MG/ML SDV ONE (08:17)
[2020-07-08] MEDS ORDERED: Morphine PF 10 MG/10 ML SDV ONE (08:17)
[2020-07-08] MEDS: Bupivacaine 0.5% 30 ML SDV ONE ×3 (08:46→14:01)
[2020-07-08] MEDS ORDERED: Oxytocin 10 Units/1 ML SDV ONE ×2 (08:48)
[2020-07-08] MEDS ORDERED: Azithromycin 500 MG in Sodium Chloride 0.9% 250 ML IV ONE (09:00)
[2020-07-08] MEDS ORDERED: Ketorolac 30 MG/ML SDV ONE (09:07)
--- NOTE | 2020-07-08 09:40 | PCM.POSTAN ---
POST ANESTHESIA ASSESSMENT - MENTAL STATUS Mental Status: Alert, Oriented - VITAL SIGNS Vital Signs: Last Vital Signs Temp 37.5 C 07/08/20 07:17 Pulse 104 H 07/08/20 07:17 Resp 14 07/08/20 07:17 BP 140/91 H 07/08/20 07:17 Pulse Ox 100 07/08/20 07:17 - RESPIRATORY Respiratory Status: Respiratory Rate WNL, Airway Patent, O2 Saturation Stable - CARDIOVASCULAR CV Status: Pulse Rate WNL, Blood Pressure Stable - GASTROINTESTINAL GI Status: No Symptoms - PAIN Pain Score: 0 - POST OP HYDRATION Hydration Status: Adequate & Stable - OBSERVATIONS Free Text/Narrative:: no anesthesia complications noted
--- NOTE | 2020-07-08 09:41 | PCM.OPNOTE ---
- General Post-Op/Procedure Note Date of Surgery/Procedure: 07/08/20 Operative Procedure(s): Repeat low uterine segment transverse section through Pfannenstiel skin incision under spinal block Findings: Patient has significant scarring in the anterior abdominal wall and the anterior uterine area to the degree that extraperitoneal section was performed. Entrance into the peritoneal cavity was not ever made. It was advanced somewhat onto the uterus. Amniotic fluid is clear. Baby is in a vertex presentation. Male delivered at 0852 hrs. on 07/08/2020 weighing 7 pounds 7 ounces with Apgars of 8 and 9 Pre Op Diagnosis: 1. 37-2/7-week intrauterine . 2. History of previous x2 with desire for repeat section. 3. Active labor Post-Op Diagnosis: Same with delivery of a viable, pacheco, male infant weighing 7 pounds 7 ounces, Apgars of 8 and 9 at 0852 hrs. on 07/08/2020 Anesthesia Technique: Spinal Other Anesthesia Type: Marcaine 0.5% 20 mLlocal Primary Surgeon: Davis Young Secondary Surgeon: Cuco Doty Anesthesia Provider: Que Otoole Corn Cooker: Maribel Tavera Reason Corn Cooker Was Necessary: Retraction, assistance, patient safety, quality of care. Fluid Replacement, Intraop: 2,100 Output, Urine Amount: 50 EBL in mLs: 950 Drain/Tube Comments:: Indwelling bladder catheter Complications: None Condition: Good Free Text/Narrative:: Surgery duration: 40 minutes Procedure: The patient is appropriately consented. Patient was transferred to the room and placed in a sitting position. Spinal anesthesia was administered. After confirmation of adequate anesthesia patient was placed in a supine position with a wedge under her right side to facilitate left lateral positioning. The patient was prepped and draped in usual fashion after Beatty catheter was already placed . The anesthetic was checked and found to be adequate. 20 mL of Marcaine 0.5% was injected locally in the Pfannenstiel incision site. The Pfannenstiel skin incision was then made and carried down through skin, subcutaneous and fascial layers. The fascia was then undermined superiorly and inferiorly to allow for adequate operating room. The recti muscles midline and preperitoneal fat was bluntly dissected. Extraperitoneal approach was necessary because of significant peritoneal scarring to the anterior uterine wall. Letter was identified and pushed down and retracted away from the lower uterine segment. Myometrium was incised transversely to the level of the amniotic sac. This incision was extended bilaterally in a blunt fashion. The amniotic sac was then ruptured resulting in clear amniotic fluid. A hand is placed in the low uterine segment and the baby's head was brought forth through the incision. The baby was completely delivered using fundal pressure in a routine fashion. The nose and mouth were bulb michel ctioned. Baby's cord was clamped x2 cut and baby was handed off to attending thread milling machine set up operator Dr Peng. Placenta was expressed after cord blood was obtained. Uterus was then exteriorized to allow for easier closure. The cervix was assessed and found to be dilated adequately to allow egress of blood. The uterus was closed in 2 layers. The first layer a running locked suture of 0 Monocryl, the second layer a running locked vertical mattress suture of 0 Monocryl. [id number] suture was placed at mid incision to control 1 bleeder. Hemostasis confirmed at this time. Sponge instrument needle counts are correct. The uterus was returned to the abdominal cavity and lateral gutters were cleared of blood. Once again sponge needle counts are correct. The anterior abdominal wall was closed with a #1 PDS suture from angle to angle. The subcutaneous area was found to be free of any bleeders. interrupted sutures of 3-0 Monocryl were used to reapproximate the subcutaneous layer.Skin was closed with a running subcuticular stitch of 3-0 Monocryl in a vertical mattress suture fashion using a Jay needle. Prineo mesh/glue was then applied to further approximate the incision. It should be noted that patient received azithromycin, clindamycin and gentamicin preoperatively for infection prophylaxis and had Pitocin infused after delivery of the placenta to facilitate uterine contraction. She also had sequential compression stockings in place for DVT prophylaxis. Patient was discharged from the operating room in satisfactory condition.
--- NOTE | 2020-07-08 09:42 | PCM.PREANE ---
Preanesthetic Assessment - Procedure Proposed Procedure: Repeat - Anesthesia/Transfusion/Family Hx Anesthesia History: Prior Anesthesia Without Reaction Family History of Anesthesia Reaction: No Transfusion History: No Prior Transfusion(s) Intubation History: Unknown - Review of Systems General: Fatigue, Malaise Pulmonary: No Symptoms Cardiovascular: No Symptoms Gastrointestinal: Abdominal Pain (active labor) Neurological: No Symptoms Other: Reports: None - Physical Assessment NPO Status Date: 07/07/20 NPO Status Time: 00:00 Vital Signs: Last Vital Signs Temp 37.5 C 07/08/20 07:17 Pulse 104 H 07/08/20 07:17 Resp 14 07/08/20 07:17 BP 140/91 H 07/08/20 07:17 Pulse Ox 100 07/08/20 07:17 Height: 1.57 m Weight: 85.82 kg ASA Class: 2 Mental Status: Alert & Oriented x3 Airway Class: Mallampati = 2 Dentition: Reports: Normal Dentition Thyro-Mental Finger Breadths: 2 Mouth Opening Finger Breadths: 2 ROM/Head Extension: Full Lungs: Clear to Auscultation, Normal Respiratory Effort Cardiovascular: Regular Rate, Regular Rhythm - Lab Values: Laboratory Last Values WBC 12.54 K/mm3 (3.98-10.04) H 07/08/20 07:42 RBC 4.64 M/mm3 (3.98-5.22) 07/08/20 07:42 Hgb 13.3 gm/dl (11.2-15.7) 07/08/20 07:42 Hct 40.4 % (34.1-44.9) 07/08/20 07:42 MCV 87.1 fl (79.4-94.8) 07/08/20 07:42 MCH 28.7 pg (25.6-32.2) 07/08/20 07:42 MCHC 32.9 g/dl (32.2-35.5) 07/08/20 07:42 RDW Std Deviation 47.2 fL (36.4-46.3) H 07/08/20 07:42 Plt Count 293 K/mm3 (182-369) 07/08/20 07:42 MPV 10.8 fl (9.4-12.3) 07/08/20 07:42 Neut % (Auto) 76.7 % (34.0-71.1) H 07/08/20 07:42 Lymph % (Auto) 16.1 % (19.3-51.7) L 07/08/20 07:42 [place] % (Auto) 6.6 % (4.7-12.5) 07/08/20 07:42 Eos % (Auto) 0.2 (0.7-5.8) L 07/08/20 07:42 Baso % (Auto) 0.1 % (0.1-1.2) 07/08/20 07:42 Neut # (Auto) 9.61 K/mm3 (1.56-6.13) H 07/08/20 07:42 Lymph # (Auto) 2.02 K/mm3 (1.18-3.74) 07/08/20 07:42 [place] # (Auto) 0.83 K/mm3 (0.24-0.36) H 07/08/20 07:42 Eos # (Auto) 0.03 K/mm3 (0.04-0.36) L 07/08/20 07:42 Baso # (Auto) 0.01 K/mm3 (0.01-0.08) 07/08/20 07:42 SARS-CoV-2 RNA (SRINIVASAN) Negative (NEGATIVE) 07/08/20 07:25 - Allergies Allergies/Adverse Reactions: Allergies Allergy/AdvReac Type Severity Reaction Status Date / Time Penicillins Allergy Hives Verified 12/17/19 08:29 - Anesthesia Plan Pre-Op Medication Ordered: Antacids - Acknowledgements Anesthesia Type Planned: Spinal Pt an Appropriate Candidate for the Planned Anesthesia: Yes Alternatives and Risks of Anesthesia Discussed w Pt/Guardian: Yes Pt/Guardian Understands and Agrees with Anesthesia Plan: Yes PreAnesthesia Questionnaire - Past Health History Medical/Surgical History: Denies Medical/Surgical History HEENT History: Reports: Impaired Vision Other HEENT History: wears glasses Respiratory History: Reports: Other (See Below) Gastrointestinal History: Reports: GERD Genitourinary History: Reports: None 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: Reports: Neurological History: Reports: Migraines Psychiatric History: Reports: Depression, Other (See Below) Other Psychiatric History: suicide attempt as a child Endocrine/Metabolic History: Reports: Obesity/BMI 30+ Hematologic History: Reports: Other (See Below) Dermatologic History: Reports: Eczema - Infectious Disease History Infectious Disease History: Reports: Chicken Pox - Past Surgical History HEENT Surgical History: Reports: Oral Surgery, Tonsillectomy - HOME MEDS Home Medications: Home Meds Prenat 115/Iron Fum/Folic/Dss [ 19 Tablet] 1 tab PO DAILY 12/17/19 [History] - CURRENT (IN HOUSE) MEDS Current Meds: Current Medications Diphenhydramine HCl (Benadryl) 25 mg IVPUSH Q6H PRN PRN Reason: pruritis Ephedrine Sulfate (Ephedrine Sulfate) 5 mg IVPUSH ASDIRECTED PRN PRN Reason: Hypotension Fentanyl (Sublimaze) 100 mcg EPIDUR Q3H PRN PRN Reason: Pain Fentanyl/Bupivacaine HCl (Fentanyl/Bupivacaine/Ns 2 Mcg-0.125% 100 Ml) 100 ml EPIDUR ASDIRECTED PRN PRN Reason: Pain Oxytocin/Lactated Ringer's (Pitocin In Lr 20 Units/1,000 Ml) 20 unit in 1,000 mls @ 500 mls/hr IV TITRATE [facility] Azithromycin 500 mg/ Sodium (Chloride) 250 mls @ 250 mls/hr IV ONETIME ONE Stop: 07/08/20 09:59 Last Admin: 07/08/20 08:11 Dose: 250 mls/hr Documented by: Lactated Ringer's (Ringers, Lactated) 1,000 mls @ 125 mls/hr IV ASDIRECTED BENJAMIN Last Admin: 07/08/20 08:10 Dose: 125 mls/hr Documented by: Sodium Chloride (Saline Flush) 10 ml FLUSH ASDIRECTED PRN PRN Reason: Keep Vein Open Discontinued Medications Bupivacaine HCl (Marcaine 0.5%) Confirm Administered Dose 30 ml .ROUTE .STK-MED ONE Stop: 07/08/20 08:22 Citric Acid/Sodium Citrate (Bicitra Solution) 30 ml PO ONETIME ONE Stop: 07/08/20 07:10 Last Admin: 07/08/20 08:13 Dose: 30 ml Documented by: Clindamycin Phosphate 900 mg/ (Premix) 50 mls @ 100 mls/hr IV ONETIME ONE Stop: 07/08/20 07:59 Gentamicin Sulfate 425 mg/ (Sodium Chloride) 110.625 mls @ 110.625 mls/hr IV ONETIME ONE Stop: 07/08/20 08:59 Lactated Ringer's (Ringers, Lactated) Confirm Administered Dose 1,000 mls @ as directed .ROUTE .STK-MED ONE Stop: 07/08/20 07:21 Lactated Ringer's (Ringers, Lactated) Confirm Administered Dose 1,000 mls @ as directed .ROUTE .STK-MED ONE Stop: 07/08/20 08:19 Ketorolac Tromethamine (Toradol) Confirm Administered Dose 30 mg .ROUTE .STK-MED ONE Stop: 07/08/20 09:08 Metoclopramide HCl (Reglan) 10 mg IVPUSH ONETIME ONE Stop: 07/08/20 08:01 Last Admin: 07/08/20 08:13 Dose: 10 mg Documented by: Morphine Sulfate (Duramorph Pf) Confirm Administered Dose 10 mg .ROUTE .STK-MED ONE Stop: 07/08/20 08:18 Oxytocin (Pitocin) Confirm Administered Dose 10 unit .ROUTE .STK-MED ONE Stop: 07/08/20 08:49 Oxytocin (Pitocin) Confirm Administered Dose 10 unit .ROUTE .STK-MED ONE Stop: 07/08/20 08:49 Phenylephrine HCl (Tyrel-Synephrine) Confirm Administered Dose 10 mg .ROUTE .STK- MED ONE Stop: 07/08/20 08:18
[2020-07-08] MEDS ORDERED: Dextrose 5%-Lactated Ringers 1,000 ML ONE (11:02)
[2020-07-08] MEDS ORDERED: Ondansetron 4 MG/2 ML SDV IV PRN ×2 (11:10→17:17)
[2020-07-08] MEDS ORDERED: Docusate Sodium 100 MG Cap PO PRN ×2 (11:10→17:17)
[2020-07-08] MEDS ORDERED: Acetaminophen/oxyCODONE 325-5 MG Tab PO PRN ×2 (11:10)
[2020-07-08] MEDS ORDERED: Dextrose 5%-Lactated Ringers 1,000 ML IV SCH ×2 (11:10→17:17)
[2020-07-08] MEDS ORDERED: Naloxone 0.4 MG/ML SDV IVPUSH PRN ×2 (11:10→17:17)
[2020-07-08] MEDS ORDERED: Methylergonovine 0.2 MG/1 ML Amp IM STA (11:15)
[2020-07-08] MEDS ORDERED: Methylergonovine 0.2 MG/1 ML Amp ONE ×2 (11:20→14:33)
[2020-07-08] MEDS ORDERED: Sodium Chloride 0.9% 1,000 ML IV SCH (11:30)
[2020-07-08] MEDS: Misoprostol 200 MCG Tab PO SCH ×4 (11:36→17:53)
[2020-07-08] MEDS ORDERED: Sodium Chloride 0.9% 1,000 ML ONE ×3 (12:02→15:12)
[2020-07-08] MEDS ORDERED: Sodium Chloride 0.9% 1,000 ML IV ONE (12:05)
[2020-07-08] MEDS ORDERED: Promethazine 25 MG/ML SDV IM ONE (12:07)
[2020-07-08] MEDS: ePHEDrine 50 MG/ML SDV IVPUSH ONE ×2 (12:07→14:19)
[2020-07-08] MEDS ORDERED: Promethazine 25 MG/ML SDV IM PRN (12:20)
[2020-07-08] MEDS ORDERED: ePHEDrine 50 MG/ML SDV IVPUSH ONE (13:07)
[2020-07-08] MEDS ORDERED: fentaNYL 250 MCG/5 ML SDV ONE (13:39)
[2020-07-08] MEDS ORDERED: Midazolam 1 MG/ML 2 ML SDV ONE (13:39)
[2020-07-08] MEDS ORDERED: Ondansetron 4 MG/2 ML SDV ONE (13:39)
[2020-07-08] MEDS ORDERED: Propofol 200 MG/20 ML SDV ONE (13:39)
[2020-07-08] MEDS ORDERED: Succinylcholine/Sod PF 100 MG/5 ML SYRINGE IV ONE (13:41)
[2020-07-08] MEDS ORDERED: Bupivacaine 0.5% 30 ML SDV ONE ×2 (13:42→13:44)
[2020-07-08] MEDS ORDERED: Clindamycin Phosphate 900 MG in Sodium Chloride 0.9% 100 ML IV ONE (14:00)
[2020-07-08] MEDS: Simethicone 80 MG Tab.Chew PO SCH ×5 (14:19→19:41)
[2020-07-08] MEDS ORDERED: Ibuprofen 800 MG Tab PO SCH (15:00)
[2020-07-08] MEDS ORDERED: Ketamine 500 mg/10 ML MDV ONE (15:06)
--- NOTE | 2020-07-08 16:15 | PCM.POSTAN ---
POST ANESTHESIA ASSESSMENT - MENTAL STATUS Mental Status: Alert, Oriented - VITAL SIGNS Vital Signs: 1600 109/67 100 2LNC 105 17 97.4 Last Vital Signs Temp 36.2 C 07/08/20 13:17 Pulse 131 H 07/08/20 13:43 Resp 12 07/08/20 13:17 BP 54/27 L 07/08/20 13:43 Pulse Ox 99 07/08/20 13:43 - RESPIRATORY Respiratory Status: Respiratory Rate WNL, Airway Patent, O2 Saturation Stable - CARDIOVASCULAR CV Status: Pulse Rate WNL, Blood Pressure Stable - GASTROINTESTINAL GI Status: No Symptoms - POST OP HYDRATION Hydration Status: Adequate & Stable
[2020-07-08] MEDS ORDERED: fentaNYL 100 MCG/2 ML SDV IVPUSH PRN (16:17)
[2020-07-08] MEDS ORDERED: Ondansetron 4 MG/2 ML SDV IVPUSH PRN (16:17)
--- NOTE | 2020-07-08 16:22 | PCM.PREANE ---
Preanesthetic Assessment - Procedure Proposed Procedure: 1330 called to room 7 to assess blood pressure. Discuss with Dr. Young and patient. Consent given for general anesthetic for Emergency Laparotomy for uncontrolled bleeding. Stat to OR. - Anesthesia/Transfusion/Family Hx Anesthesia History: Prior Anesthesia Without Reaction Family History of Anesthesia Reaction: No Transfusion History: No Prior Transfusion(s) Intubation History: Unknown - Review of Systems General: Fatigue, Malaise Pulmonary: No Symptoms Cardiovascular: Other (hypotention) Gastrointestinal: Abdominal Pain ( incision) Neurological: No Symptoms Other: Reports: Easy Bleeding (currently) - Physical Assessment NPO Status Date: 07/07/20 NPO Status Time: 00:00 Vital Signs: Last Vital Signs Temp 36.2 C 07/08/20 13:17 Pulse 131 H 07/08/20 13:43 Resp 12 07/08/20 13:17 BP 54/27 L 07/08/20 13:43 Pulse Ox 99 07/08/20 13:43 Height: 1.57 m Weight: 85.82 kg ASA Class: 2E Mental Status: Alert & Oriented x3 Airway Class: Mallampati = 3 Dentition: Reports: Normal Dentition Thyro-Mental Finger Breadths: 2 Mouth Opening Finger Breadths: 2 ROM/Head Extension: Full Lungs: Clear to Auscultation, Normal Respiratory Effort Cardiovascular: Tachycardia - Lab Values: Laboratory Last Values WBC 16.59 K/mm3 (3.98-10.04) H 07/08/20 15:20 RBC 2.90 M/mm3 (3.98-5.22) L 07/08/20 15:20 Hgb 8.5 gm/dl (11.2-15.7) L 07/08/20 15:20 Hct 25.4 % (34.1-44.9) L 07/08/20 15:20 MCV 87.6 fl (79.4-94.8) D 07/08/20 15:20 MCH 29.3 pg (25.6-32.2) 07/08/20 15:20 MCHC 33.5 g/dl (32.2-35.5) 07/08/20 15:20 RDW Std Deviation 43.0 fL (36.4-46.3) 07/08/20 15:20 Plt Count 116 K/mm3 (182-369) L D 07/08/20 15:20 MPV 11.2 fl (9.4-12.3) 07/08/20 15:20 Neut % (Auto) 82.3 % (34.0-71.1) H 07/08/20 11:50 Lymph % (Auto) 10.6 % (19.3-51.7) L 07/08/20 11:50 Cameron % (Auto) 6.8 % (4.7-12.5) 07/08/20 11:50 Eos % (Auto) 0 (0.7-5.8) L 07/08/20 11:50 Baso % (Auto) 0.1 % (0.1-1.2) 07/08/20 11:50 Neut # (Auto) 16.93 K/mm3 (1.56-6.13) H 07/08/20 11:50 Lymph # (Auto) 2.18 K/mm3 (1.18-3.74) 07/08/20 11:50 Cameron # (Auto) 1.40 K/mm3 (0.24-0.36) H 07/08/20 11:50 Eos # (Auto) 0.01 K/mm3 (0.04-0.36) L 07/08/20 11:50 Baso # (Auto) 0.02 K/mm3 (0.01-0.08) 07/08/20 11:50 Neutrophils % (Manual) 79 % (40-60) H 07/08/20 15:20 Band Neutrophils % 3 % (0-10) 07/08/20 15:20 Lymphocytes % (Manual) 11 % (20-40) L 07/08/20 15:20 Atypical Lymphs % 0 % 07/08/20 15:20 Monocytes % (Manual) 7 % (2-10) 07/08/20 15:20 Eosinophils % (Manual) 0 % (0.7-5.8) L 07/08/20 15:20 Basophils % (Manual) 0 (0.1-1.2) L 07/08/20 15:20 Manual Slide Review Abnormal smear 07/08/20 11:50 Platelet Estimate Decreased 07/08/20 15:20 Plt Morphology Comment See note 07/08/20 15:20 RBC Morph Comment Normal 07/08/20 15:20 POC Glucose 101 mg/dL (70-105) 07/08/20 10:49 SARS-CoV-2 RNA (SRINIVASAN) Negative (NEGATIVE) 07/08/20 07:25 Blood Type O POSITIVE 07/08/20 07:42 Gel Antibody Screen Negative 07/08/20 07:42 Crossmatch See Detail 07/08/20 07:42 - Allergies Allergies/Adverse Reactions: Allergies Allergy/AdvReac Type Severity Reaction Status Date / Time Penicillins Allergy Hives Verified 12/17/19 08:29 - Blood Blood Available: Yes Product(s) Available: PRBC, FFP - Anesthesia Plan Pre-Op Medication Ordered: None - Acknowledgements Anesthesia Type Planned: General Anesthesia Pt an Appropriate Candidate for the Planned Anesthesia: Yes Alternatives and Risks of Anesthesia Discussed w Pt/Guardian: Yes Pt/Guardian Understands and Agrees with Anesthesia Plan: Yes PreAnesthesia Questionnaire - Past Health History Medical/Surgical History: Denies Medical/Surgical History HEENT History: Reports: Impaired Vision Other HEENT History: wears glasses Respiratory History: Reports: Other (See Below) Gastrointestinal History: Reports: GERD Genitourinary History: Reports: None 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: Neurological History: Reports: Migraines Psychiatric History: Reports: Depression, Other (See Below) Other Psychiatric History: suicide attempt as a child Endocrine/Metabolic History: Reports: Obesity/BMI 30+ Hematologic History: Reports: Other (See Below) Dermatologic History: Reports: Eczema - Infectious Disease History Infectious Disease History: Reports: Chicken Pox - Past Surgical History HEENT Surgical History: Reports: Oral Surgery, Tonsillectomy - SUBSTANCE USE Tobacco Use Status *Q: Never Tobacco User Tobacco Use Within Last Twelve Months: No Second Hand Smoke Exposure: No Recreational Drug Use History: Yes Recreational Drug Type: Reports: Marijuana/Hashish - HOME MEDS Home Medications: Home Meds Prenat 115/Iron Fum/Folic/Dss [ 19 Tablet] 1 tab PO DAILY 12/17/19 [History] - CURRENT (IN HOUSE) MEDS Current Meds: Current Medications Diphenhydramine HCl (Benadryl) 25 mg IVPUSH Q6H PRN PRN Reason: Itching or Nausea Docusate Sodium (Colace) 100 mg PO Q12H PRN PRN Reason: Constipation Ephedrine Sulfate (Ephedrine Sulfate) 5 mg IVPUSH SEECOMMENT PRN PRN Reason: Other Dextrose/Lactated Ringer's (Dextrose 5%-Lactated Ringers) 1,000 mls @ 125 mls/hr IV ASDIRECTED [facility] Stop: 07/08/20 19:09 Last Admin: 07/08/20 11:00 Dose: 125 mls/hr Documented by: Sodium Chloride (Normal Saline) 1,000 mls @ 125 mls/hr IV ASDIRECTED [facility] Last Admin: 07/08/20 12:04 Dose: 125 mls/hr Documented by: Ibuprofen (Motrin) 800 mg PO Q8H [facility] Naloxone HCl (Narcan) 0.1 mg IVPUSH SEECOMMENT PRN PRN Reason: Respiratory Depression Ondansetron HCl (Zofran) 4 mg IV Q4H PRN PRN Reason: Nausea/Vomiting Oxycodone/Acetaminophen (Percocet 325-5 Mg) 1 tab PO Q4H PRN PRN Reason: Pain (moderate 4-6) Oxycodone/Acetaminophen (Percocet 325-5 Mg) 2 tab PO Q4H PRN PRN Reason: Pain (severe 7-10) Prenat Multivit/[place]/Iron/Folic Ac ( Plus Iron) 1 each PO DAILY [facility] Promethazine HCl (Phenergan) 25 mg IM Q4H PRN PRN Reason: Nausea Last Admin: 07/08/20 12:22 Dose: 25 mg Documented by: Simethicone (Simethicone) 160 mg PO QID [facility] Last Admin: 07/08/20 14:19 Dose: Not Given Documented by: Discontinued Medications Bupivacaine HCl (Marcaine 0.5%) Confirm Administered Dose 30 ml .ROUTE .STK-MED ONE Stop: 07/08/20 08:22 Last Admin: 07/08/20 08:46 Dose: 20 ml Documented by: Bupivacaine HCl (Marcaine 0.5%) Confirm Administered Dose 30 ml .ROUTE .STK-MED ONE Stop: 07/08/20 13:43 Bupivacaine HCl (Marcaine 0.5%) Confirm Administered Dose 30 ml .ROUTE .STK-MED ONE Stop: 07/08/20 13:45 Citric Acid/Sodium Citrate (Bicitra Solution) 30 ml PO ONETIME ONE Stop: 07/08/20 07:10 Last Admin: 07/08/20 08:13 Dose: 30 ml Documented by: Diphenhydramine HCl (Benadryl) 25 mg IVPUSH Q6H PRN PRN Reason: pruritis Ephedrine Sulfate (Ephedrine Sulfate) 5 mg IVPUSH ASDIRECTED PRN PRN Reason: Hypotension Ephedrine Sulfate (Ephedrine Sulfate) 10 mg IVPUSH ONETIME ONE Stop: 07/08/20 12:08 Last Admin: 07/08/20 14:19 Dose: Not Given Documented by: Ephedrine Sulfate (Ephedrine Sulfate) 10 mg IVPUSH ONETIME ONE Stop: 07/08/20 13:08 Last Admin: 07/08/20 13:04 Dose: 10 mg Documented by: Fentanyl (Sublimaze) 100 mcg EPIDUR Q3H PRN PRN Reason: Pain Fentanyl (Sublimaze) Confirm Administered Dose 250 mcg .ROUTE .STK-MED ONE Stop: 07/08/20 13:40 Fentanyl/Bupivacaine HCl (Fentanyl/Bupivacaine/Ns 2 Mcg-0.125% 100 Ml) 100 ml EPIDUR ASDIRECTED PRN PRN Reason: Pain Clindamycin Phosphate 900 mg/ (Premix) 50 mls @ 100 mls/hr IV ONETIME ONE Stop: 07/08/20 07:59 Last Admin: 07/08/20 14:25 Dose: Not Given Documented by: Gentamicin Sulfate 425 mg/ (Sodium Chloride) 110.625 mls @ 110.625 mls/hr IV ONETIME ONE Stop: 07/08/20 08:59 Last Admin: 07/08/20 14:25 Dose: Not Given Documented by: Oxytocin/Lactated Ringer's (Pitocin In Lr 20 Units/1,000 Ml) 20 unit in 1,000 mls @ 500 mls/hr IV TITRATE [facility] Azithromycin 500 mg/ Sodium (Chloride) 250 mls @ 250 mls/hr IV ONETIME ONE Stop: 07/08/20 09:59 Last Admin: 07/08/20 08:11 Dose: 250 mls/hr Documented by: Lactated Ringer's (Ringers, Lactated) 1,000 mls @ 125 mls/hr IV ASDIRECTED [facility] Last Admin: 07/08/20 08:10 Dose: 125 mls/hr Documented by: Lactated Ringer's (Ringers, Lactated) Confirm Administered Dose 1,000 mls @ as directed .ROUTE .STK-MED ONE Stop: 07/08/20 07:21 Last Admin: 07/08/20 14:25 Dose: Not Given Documented by: Lactated Ringer's (Ringers, Lactated) Confirm Administered Dose 1,000 mls @ as directed .ROUTE .STK-MED ONE Stop: 07/08/20 08:19 Dextrose/Lactated Ringer's (Dextrose 5%-Lactated Ringers) Confirm Administered Dose 1,000 mls @ as directed .ROUTE .STK-MED ONE Stop: 07/08/20 11:03 Last Admin: 07/08/20 11:31 Dose: Not Given Documented by: Sodium Chloride (Normal Saline) Confirm Administered Dose 1,000 mls @ as directed .ROUTE .STK-MED ONE Stop: 07/08/20 12:03 Last Admin: 07/08/20 12:15 Dose: Not Given Documented by: Sodium Chloride (Normal Saline) 1,000 mls @ 999 mls/hr IV ONETIME ONE Stop: 07/08/20 13:05 Last Admin: 07/08/20 12:04 Dose: 999 mls/hr Documented by: Clindamycin Phosphate 900 mg/ (Sodium Chloride) 106 mls @ 200 mls/hr IV ONETIME ONE Stop: 07/08/20 14:31 Last Admin: 07/08/20 14:28 Dose: Not Given Documented by: Sodium Chloride (Normal Saline) Confirm Administered Dose 1,000 mls @ as directed .ROUTE .STK-MED ONE Stop: 07/08/20 15:13 Sodium Chloride (Normal Saline) Confirm Administered Dose 1,000 mls @ as directed .ROUTE .STK-MED ONE Stop: 07/08/20 15:13 Lactated Ringer's (Ringers, Lactated) Confirm Administered Dose 1,000 mls @ as directed .ROUTE .STK-MED ONE Stop: 07/08/20 15:13 Ketamine HCl (Ketalar) Confirm Administered Dose 500 mg .ROUTE .STK-MED ONE Stop: 07/08/20 15:07 Ketorolac Tromethamine (Toradol) Confirm Administered Dose 30 mg .ROUTE .STK-MED ONE Stop: 07/08/20 09:08 Methylergonovine Maleate (Methergine) 0.2 mg IM STAT STA Stop: 07/08/20 11:16 Last Admin: 07/08/20 11:23 Dose: 0.2 mg Documented by: Methylergonovine Maleate (Methergine) Confirm Administered Dose 0.2 mg .ROUTE .STK-MED ONE Stop: 07/08/20 11:21 Last Admin: 07/08/20 11:31 Dose: Not Given Documented by: Methylergonovine Maleate (Methergine) Confirm Administered Dose 0.2 mg .ROUTE .STK-MED ONE Stop: 07/08/20 14:34 Last Admin: 07/08/20 14:30 Dose: 0.2 mg Documented by: Metoclopramide HCl (Reglan) 10 mg IVPUSH ONETIME ONE Stop: 07/08/20 08:01 Last Admin: 07/08/20 08:13 Dose: 10 mg Documented by: Midazolam HCl (Versed 1 Mg/Ml) Confirm Administered Dose 2 mg .ROUTE .STK-MED ONE Stop: 07/08/20 13:40 Misoprostol (Cytotec) 400 mcg PO Q2HR [facility] Stop: 07/08/20 14:01 Last Admin: 07/08/20 14:25 Dose: Not Given Documented by: Misoprostol (Cytotec) 400 mcg PO Q2H [facility] Stop: 07/08/20 15:31 Morphine Sulfate (Duramorph Pf) Confirm Administered Dose 10 mg .ROUTE .STK-MED ONE Stop: 07/08/20 08:18 Ondansetron HCl (Zofran) Confirm Administered Dose 4 mg .ROUTE .STK-MED ONE Stop: 07/08/20 13:40 Oxytocin (Pitocin) Confirm Administered Dose 10 unit .ROUTE .STK-MED ONE Stop: 07/08/20 08:49 Oxytocin (Pitocin) Confirm Administered Dose 10 unit .ROUTE .STK-MED ONE Stop: 07/08/20 08:49 Phenylephrine HCl (Tyrel-Synephrine) Confirm Administered Dose 10 mg .ROUTE .STK- MED ONE Stop: 07/08/20 08:18 Promethazine HCl (Phenergan) 12.5 mg IM ONETIME ONE Stop: 07/08/20 12:08 Last Admin: 07/08/20 14:26 Dose: Not Given Documented by: Propofol (Diprivan 20 Ml) Confirm Administered Dose 200 mg .ROUTE .STK-MED ONE Stop: 07/08/20 13:40 Sodium Chloride (Saline Flush) 10 ml FLUSH ASDIRECTED PRN PRN Reason: Keep Vein Open Tranexamic Acid (Cyklokapron) Confirm Administered Dose 1,000 mg .ROUTE .STK-MED ONE Stop: 07/08/20 13:28 Last Admin: 07/08/20 13:37 Dose: 1,000 mg Documented by: Tranexamic Acid (Cyklokapron) 1,000 mg IVPUSH ONETIME ONE Stop: 07/08/20 14:17 Last Admin: 07/08/20 14:27 Dose: Not Given Documented by:
--- NOTE | 2020-07-08 16:41 | PCM.OPNOTE ---
- General Post-Op/Procedure Note Date of Surgery/Procedure: 07/08/20 Operative Procedure(s): Laparotomy, evacuation of right pelvic retroperitoneal hematoma, abdominal hysterectomy with right salpingo-oophorectomy and left salpingectomy. Findings: Patient was noted on ultrasound and also on evaluation at the time of surgery to have a retroperitoneal hematoma on the right side of her uterus dissecting from the broad ligament cephalad. There were 2 small arterial bleeders noted in the area of the right broad ligament lateral to the uterine incision and posterior to patient's severe uterine adhesions found to be present at the time of her C- section. Uterine incision site was intact and no bleeding was noted in this area. The 2 identified bleeders were felt to be the cause of her hematoma. Patient had significant scarring which did not allow for externalization of the uterus without extensive adhesiolysis involving the whole anterior left surface of the uterus to the area of the broad ligament which was adhered to the anterior abdominal wall and the lower right abdominal wall adhered to the uterus to approximately intermediate up the anterior side of the uterus. At the time of the patient's section the peritoneal cavity was not entered because of the significant scarring. An extra-peritoneal was done. The right ovarian and fallopian tube vasculature were felt to have been compromised with the dissection of the right uterine adhesions to the anterior abdominal wall and with dissection of the broad ligament done in evaluation of the hematoma. The left ovary and fallopian tube remained intact and uncompromised. The decision was made to do a hysterectomy because of continued bleeding from the right uterine artery area despite aggressive attempts at hemostasis. Retention of the uterus was the desire of the patient. It appeared that hemostasis is not achievable without a hysterectomy. Pre Op Diagnosis: 1. Probable right adnexal, retroperitoneal hematoma status post Post-Op Diagnosis: Same Anesthesia Technique: General ET Tube Primary Surgeon: Davis Young Secondary Surgeon: Cuco Doty Anesthesia Provider: Que Otoole Phlebotomy Instructor: Reena Luz Reason Phlebotomy Instructor Was Necessary: Retraction, assistance, patient safety, quality of care. Pathology: Uterus, right fallopian tube and ovary and left fallopian tube Fluid Replacement, Intraop: 2,500 (Crystalloid. 4 units packed red blood cells, 2 units fresh frozen plasma) Output, Urine Amount: 0 Drain/Tube Comments:: Indwelling bladder catheter Condition: Good Free Text/Narrative:: Intake & Output 10/27/20 10/27/20 10/27/20 06:59 14:59 22:59 Intake Total 6814 Output Total 1720 Balance 5094 Surgery duration: 1 hour and 3 minutes. Procedure: The patient was taken to the operating room after adequate consent was obtained. She received clindamycin per recommendation of pharmacy for preoperative infection prophylaxis. She had sequential compression stockings in place for DVT prophylaxis. General endotracheal anesthesia was administered and after adequate administration anesthesia patient was prepped and draped in usual fashion. The Pfannenstiel skin incision previously used for was reopened. The fascial layer was also opened revealing what appeared to be a hematoma in the right broad ligament area. There was no bleeding from the uterine incision that had been used for her section. Dense adhesions were noted as described in the findings portion of this note. It was apparent that these adhesions needed to come down in order to free up the uterus to access the area of the right broad ligament and evaluate and treat the cause of the hematoma. The dense left-sided adhesions were taken down with sharp and blunt dissection taking care to avoid bowel. The uterus was severely adhered to the anterior abdominal wall. These adhesions had not previously been taken down as the had been done extraperitoneally without any major concerns. The bladder edge was identified and care was taken not to injure the bladder. After the uterus was freed up on the left side, the right side anterior uterine wall adhesions were then taken down. Care was taken to stay close to the uterus and avoid the pelvic sidewall and the course of the ureter. This allowed free access to the uterus which was then externalized exposing the right broad ligament. The right broad ligament was then opened and at this time 2 small bleeders originating probably from the uterine or cervical branches of the uterine artery were identified and were crossclamped with Indigo clamped and suture-ligated. Blood clot was evacuated from the hematoma. Despite attempts at conservative management, bleeding however continued from several sites in the area of the right uterine vasculature area close to the uterus. FloSeal x2 units were then placed into the area of continued bleeding but this did not bring about absolute hemostasis. Because of this lack of ability to obtain complete hemostasis and the somewhat unstable blood pressures and pulses apparent at the time, the decision was made to definitively treat the situation with a hysterectomy. The area of the right uterine artery was crossclamped with a Indigo clamp. This pedicle was suture-ligated using an Indigo stitch of #1 Vicryl suture. Again attempt was made to avoid the area of the ureter. At this time the left side of the uterus was then developed sleep taking down the fallopian tube mesosalpinx. The ovarian ligament and broad ligament were then taken down in serial fashion with each pedicle suture-ligated with #1 Vicryl using Indigo stitches. Uterine vasculature was then crossclamped. An attempt was made to take the entire cervix. The anatomy however was less distinct because of advanced cervical dilation present at the time of the section. The upper vagina was crossclamped using Inidgo clamps. Each of these were suture ligated using Indigo stitch of #1 Vicryl. The vaginal cuff was then closed using a running locked stitch of #1 Vicryl. It was further approximated using a second layer of #1 Vicryl to imbricate and strengthen the area. At this time hemostasis was confirmed. The left ovary had been retained and appeared healthy and with good blood supply. The uterus with cervix, bilateral fallopian tubes and right ovary were removed. At this time decision was made to close the abdomen. The anterior fascia was closed with #1 PDS from angle to angle. The subcutaneous area was irrigated and found to be hemostatically intact. This was approximated with 3-0 Monocryl sutures in interrupted fashion to decrease likelihood of hematoma, seroma or an abscess formation. Skin was closed with a running subcuticular suture of 3-0 Monocryl on a Jay needle. This further approximated with Prineo mesh in the usual fashion. Blood products administered during the course of her surgery included 4 units of packed red blood cells which were given in addition to the one given in the preop period. In a total of 5 units of packed red blood cells. 2 units of fresh frozen plasma were given during the course of the procedure also. Platelet count prior to surgery was 267,000 therefore additional platelets were not administered. Patient was awakened from general endotracheal anesthesia. She tolerated the procedure reasonably well. At the end of the procedure her vital signs stabilized. After short period in the recovery room her urine output increased and patient was alert and oriented x3.
[2020-07-08] MEDS: Ibuprofen 800 MG Tab PO SCH (18:48)
[2020-07-08] MEDS: Acetaminophen/oxyCODONE 325-5 MG Tab PO PRN (19:38)
[2020-07-08] MEDS: Clindamycin Phosphate 900 MG in Sodium Chloride 0.9% 100 ML IV SCH (20:37)
[2020-07-08] MEDS: HYDROmorphone 0.5 MG/0.5 ML Syringe IVPUSH PRN (21:26)
[2020-07-09] MEDS: Acetaminophen/oxyCODONE 325-5 MG Tab PO PRN ×5 (00:56→20:54)
[2020-07-09] MEDS: HYDROmorphone 0.5 MG/0.5 ML Syringe IVPUSH PRN ×6 (01:04→22:02)
[2020-07-09] MEDS: Simethicone 80 MG Tab.Chew PO SCH ×5 (01:15→20:55)
[2020-07-09] MEDS: Ibuprofen 800 MG Tab PO SCH ×3 (01:51→18:05)
[2020-07-09] MEDS: Clindamycin Phosphate 900 MG in Sodium Chloride 0.9% 100 ML IV SCH (02:55)
[2020-07-09] MEDS ORDERED: Prenatal Multivitamin with Calcium/Folic Acid/Iron Tab PO SCH (09:00)
[2020-07-09] MEDS ORDERED: Clindamycin Phosphate in D5W 900 MG in Premix Bag 1 BAG IV ONE ×2 (09:30)
--- NOTE | 2020-07-09 10:19 | PCM.SN.2 ---
- Free Text/Narrative Note: note: Operative day #1. Status post repeat , status post laparotomy with total abdominal hysterectomy with right salpingo-oophorectomy and left salpingectomy done for right pelvic hematoma. Patient is doing well in the period. Minimal lochia, voiding well, ambulated without problems. Nursing without concerns. Discussion is held with patient as to the events that happened on 07/08/2020 leading up to her second surgery. Appears to understand and has no further questions at this time. Patient is afebrile, vital signs are stable. Urine output is good. Oral intake is adequate. Lungs are clear with good breath sounds in all lung nguyen. Cardiovascular exam shows regular rate and rhythm. Patient has a grade 2 systolic ejection murmur. Suspected due to her anemia. Abdomen is flat, soft, uterus is below the umbilicus and is firm and nontender. Positive bowel sounds are noted but decreased. Incision appears to be healing well. Prineo mesh is in place and dry, intact without discharge or seroma. Legs are nontender. Laboratory testing shows hemoglobin of 8.3, hematocrit 24.9. White count is 11.09. Platelets are 142. Her comprehensive metabolic profile shows creatinine which is normal at 0.8. Her sodium is 138. Potassium 3.7. Chloride is 106 and CO2 is 21. Remainder of values are within normal limits considering patient surgery and history of . Assessment/plan: 1. Postop day #1. Patient is doing well. 2. Anemia secondary to blood loss from time of surgery and from pelvic hematoma. Patient is stable at this point. Vital signs are stable. Urine output is good. Will monitor how well she does with ambulation. Will recheck her CBC in a.m. 3. Increase diet, activity with assistance 4. When patient ambulating well we will discontinue her SCDs 5. Will DC second IV. Saline lock primary IV when tolerating fluids well. 6. Patient has further drop in hemoglobin or is symptomatic secondary to her may consider transfusing 2 more units of packed red blood cells. 7. Platelet count is slowly rebounding. Will monitor with a CBC tomorrow a.m.
--- NOTE | 2020-07-09 10:21 | PCM48HPAN ---
Post Anesthesia Note - EVALUATION WITHIN 48HRS OF ANESTHETIC Vital Signs in Normal Range: Yes Patient Participated in Evaluation: Yes Respiratory Function Stable: Yes Airway Patent: Yes Cardiovascular Function Stable: Yes Hydration Status Stable: Yes Pain Control Satisfactory: Yes Nausea and Vomiting Control Satisfactory: Yes Mental Status Recovered: Yes Vital Signs: Last Vital Signs Temp 37.3 C 07/09/20 04:06 Pulse 96 07/09/20 04:07 Resp 18 07/09/20 04:06 BP 95/66 07/09/20 04:06 Pulse Ox 98 07/09/20 04:07 - COMMENTS/OBSERVATIONS Free Text/Narrative:: Heide is complaining of a headache this morning. She describes it as frontal and has come and gone throughout the night. No other associated signs or symptoms at this time. No blurry vision or neck soreness note. Will continue to monitor at this time.
[2020-07-10] MEDS: Ibuprofen 800 MG Tab PO SCH ×4 (03:01→19:15)
[2020-07-10] MEDS: Acetaminophen/oxyCODONE 325-5 MG Tab PO PRN ×5 (05:36→23:54)
[2020-07-10] MEDS: Clindamycin Phosphate 900 MG in Sodium Chloride 0.9% 100 ML IV SCH (06:58)
[2020-07-10] MEDS: HYDROmorphone 0.5 MG/0.5 ML Syringe IVPUSH PRN ×2 (08:22→22:00)
[2020-07-10] MEDS: Simethicone 80 MG Tab.Chew PO SCH ×4 (08:25→20:31)
--- NOTE | 2020-07-10 09:53 | PCM48HPAN ---
Post Anesthesia Note - EVALUATION WITHIN 48HRS OF ANESTHETIC Vital Signs in Normal Range: Yes Patient Participated in Evaluation: Yes Respiratory Function Stable: Yes Airway Patent: Yes Cardiovascular Function Stable: Yes Hydration Status Stable: Yes Pain Control Satisfactory: Yes Nausea and Vomiting Control Satisfactory: Yes Mental Status Recovered: Yes Vital Signs: Last Vital Signs Temp 36.7 C 07/10/20 03:42 Pulse 101 H 07/10/20 03:05 Resp 16 07/10/20 03:42 BP 136/80 07/10/20 03:05 Pulse Ox 93 L 07/10/20 03:05 - COMMENTS/OBSERVATIONS Free Text/Narrative:: Pt Headache is "Much better". Encouraged to increase fluids with lots of rest.
--- NOTE | 2020-07-10 10:51 | PCM.SN.2 ---
- Free Text/Narrative Note: Post Operative Progress Note POD #2 Subjective: Doing well overall. Ambulating slowly but overall without difficulty. Lochia minimal and decreasing since yesterday. Voiding without difficulty. Passing flatus but has not had a bowel movement. Tolerating regular diet without nausea or vomiting. Pain moderately controlled with oral medications with intermittent IV Dilaudid. Bottlefeeding with minimal difficulty but plans to start trying breast-feeding prior to discharge. Denies any lightheadedness or dizziness. Denies any significant shortness of breath and will only have a small amount of shortness of breath when she gets up and starts walking. She states that this is overall tolerable. She is doing incentive spirometry and is increasing her lung capacity with use of the spirometer. Denies any fevers or chills. Denies any bleeding from the incision. Objective: Vitals: Vital Signs - 24 hr 07/09/20 07/09/20 07/09/20 12:00 12:08 15:40 Temperature [ Oral] Temperature [ 37.7 C Temporal] Pulse, 105 H 100 Peripheral Pulse, 107 H Peripheral [ Pulse Oximetry] Respiratory 16 Rate Blood Pressure 123/74 117/74 Blood Pressure 123/74 [Left Arm] O2 Sat by Pulse 94 L 94 L 97 Oximetry 07/09/20 07/09/20 07/09/20 16:38 19:22 19:25 Temperature [ Oral] Temperature [ 37.2 C 37.4 C Temporal] Pulse, 108 H Peripheral Pulse, Peripheral [ Pulse Oximetry] Respiratory 16 16 Rate Blood Pressure 126/66 Blood Pressure [Left Arm] O2 Sat by Pulse 98 94 L Oximetry 07/10/20 07/10/20 03:05 03:42 Temperature [ 36.7 C Oral] Temperature [ Temporal] Pulse, 101 H Peripheral Pulse, Peripheral [ Pulse Oximetry] Respiratory 16 Rate Blood Pressure 136/80 Blood Pressure [Left Arm] O2 Sat by Pulse 93 L Oximetry Physical Exam General: Alert and oriented, no acute distress Lungs: Clear to auscultation bilaterally Heart: Regular rate and rhythm, grade 3/6 crescendo decrescendo systolic murmur Abdomen: Soft, minimal appropriate tenderness with increasing amount of tenderness on the right side of the abdomen, mild distention Incision: Clean, dry and intact, no erythema, bleeding or drainage with Prineo dressing in place Extremities: No edema, no calf tenderness Labs: Laboratory Results - last 24 hr 07/10/20 Range/Units 09:20 WBC 17.94 H (3.98-10.04) K/mm3 RBC 2.55 L (3.98-5.22) M/mm3 Hgb 7.3 L* (11.2-15.7) gm/dl Hct 22.8 L (34.1-44.9) % MCV 89.4 D (79.4-94.8) fl MCH 28.6 (25.6-32.2) pg MCHC 32.0 L (32.2-35.5) g/dl RDW Std Deviation 48.8 H (36.4-46.3) fL Plt Count 162 L (182-369) K/mm3 MPV 11.0 (9.4-12.3) fl Neut % (Auto) 78.1 H (34.0-71.1) % Lymph % (Auto) 13.5 L (19.3-51.7) % [place] % (Auto) 6.5 (4.7-12.5) % Eos % (Auto) 0 L (0.7-5.8) Baso % (Auto) 0.1 (0.1-1.2) % Neut # (Auto) 14.02 H (1.56-6.13) K/mm3 Lymph # (Auto) 2.43 (1.18-3.74) K/mm3 [place] # (Auto) 1.16 H (0.24-0.36) K/mm3 Eos # (Auto) 0.00 L (0.04-0.36) K/mm3 Baso # (Auto) 0.01 (0.01-0.08) K/mm3 Manual Slide Review Normal smear ASSESSMENT: 30-year-old female -0-0-4 s/p repeat section POD #2 for history of section, status post takeback surgery for abdominal hematoma and bleeding with supracervical hysterectomy performed, POD #2, complicated by acute blood loss anemia with abdominal hematoma and bleeding leading to take back surgery for supracervical hysterectomy, obesity and history of section Patient received a total of 6 units PRBCs and 2 uints of FFP PLAN: Doing well overall Vitals stable at this time with mild tachycardia but no evidence of hypotension. Patient is afebrile. CBC this morning showed hemoglobin of 7.3. Patient is asymptomatic at this time. We will repeat CBC in the morning of POD #3. Bottlefeeding with minimal difficulty. Patient plans to try breast-feeding at some point prior to discharge. Assist as needed Incision healing well. Continue to keep clean and dry. Lochia minimal. Continue to monitor for appropriate lochia. Continue routine post-operative care Anticipate discharge home once patient is stable enough for discharge, anticipate this to be on POD #3 or #4 Cuco Doty MD 10:48 AM 07/10/2020
--- NOTE | 2020-07-10 15:19 | US ---
PROCEDURE INFORMATION: Exam: US Abdomen; Limited Exam date and time: 07/08/2020 1:26 PM Age: 30 years old Clinical indication: Prior surgery; Surgery date: Post-operative (0-2 days); Surgery type: PT had csection approx. 2 hours ago and is bleeding heavily. PT going back to surgery now. TECHNIQUE: Imaging protocol: US abdomen. Real time ultrasound with image documentation. Limited exam focused on the region of clinical interest. COMPARISON: US Abdomen Ltd 12/16/2019 10:58 PM FINDINGS: Other findings: Large area of heterogeneous echodensity present within the pelvis measuring 16.0 x 11.2 x 8.6 cm. This may be consistent with a blood clot. IMPRESSION: Large area of heterogeneous echodensity present within the pelvis measuring 16.0 x 11.2 x 8.6 cm. This may be consistent with a blood clot. Ordering physician was present for the examination per technologist report. Thank you for allowing us to participate in the care of your patient. Dictated and Authenticated by: Steve Nicole DO 07/08/2020 2:49 PM Central Time ([place] & [place]) [facility]
[2020-07-10] MEDS ORDERED: oxyCODONE 5 MG Tab PO PRN (18:43)
[2020-07-10] MEDS: Docusate Sodium 100 MG Cap PO SCH (20:31)
[2020-07-11] MEDS: Ibuprofen 800 MG Tab PO SCH ×4 (01:40→22:30)
[2020-07-11] MEDS: Acetaminophen/oxyCODONE 325-5 MG Tab PO PRN ×4 (04:15→19:04)
[2020-07-11] MEDS: Simethicone 80 MG Tab.Chew PO SCH ×4 (08:31→21:01)
[2020-07-11] MEDS: Docusate Sodium 100 MG Cap PO SCH ×2 (08:31→21:01)
[2020-07-11] MEDS ORDERED: Sodium Chloride 0.9% 250 ML ONE (10:33)
--- NOTE | 2020-07-11 10:42 | PCM.SN.2 ---
- Free Text/Narrative Note: Post Operative Progress Note POD #3 Subjective: Doing well overall throughout the evening and into this morning. She reports that with breakfast she started to have increased amounts of lightheadedness with shortness of breath and chest pressure. She feels like it is difficult to take a good deep breath with breathing after eating. She has also been feeling somewhat dizzy with just laying in bed. Increasing ambulation and was not having any difficulty throughout the night or this morning. Lochia minimal and continuing to decrease since yesterday. Voiding without difficulty. Passing flatus but has not had a bowel movement. Tolerating regular diet without nausea or vomiting. Pain with improved control with oral medications with intermittent IV Dilaudid. Bottlefeeding with minimal difficulty. Denies any fevers or chills. Denies any bleeding from the incision. Objective: Vitals: Vital Signs - 24 hr 07/10/20 07/10/20 07/10/20 14:00 14:29 20:34 Temperature 36.7 C 36.3 C Pulse, 105 H 84 Peripheral Respiratory 16 16 Rate Blood Pressure 122/83 124/60 O2 Sat by Pulse 97 97 94 L Oximetry 07/10/20 07/10/20 07/11/20 20:35 23:57 04:08 Temperature 36.3 C Pulse, 85 99 67 Peripheral Respiratory 14 16 Rate Blood Pressure 134/77 148/87 H O2 Sat by Pulse 94 L 91 L 96 Oximetry 07/11/20 07/11/20 07/11/20 04:09 04:10 04:11 Temperature 37.2 C Pulse, 75 101 H 72 Peripheral Respiratory 16 Rate Blood Pressure 140/79 138/64 O2 Sat by Pulse 92 L 91 L 74 L Oximetry 07/11/20 08:38 Temperature 36.9 C Pulse, 75 Peripheral Respiratory 14 Rate Blood Pressure 136/73 O2 Sat by Pulse 96 Oximetry Physical Exam General: Alert and oriented, no acute distress Lungs: Clear to auscultation bilaterally Heart: Regular rate and rhythm, grade 1-2/6 crescendo decrescendo systolic murmur Abdomen: Soft, minimal appropriate tenderness with increasing amount of tenderness on the right side of the abdomen, mild distention Incision: Clean, dry and intact, no erythema, bleeding or drainage with Prineo dressing in place Extremities: No edema, no calf tenderness Labs: Laboratory Results - last 24 hr 07/11/20 07/11/20 07/11/20 Range/Units 05:41 05:41 05:41 WBC 16.20 H (3.98-10.04) K/mm3 RBC 2.43 L (3.98-5.22) M/mm3 Hgb 7.1 L* (11.2-15.7) gm/dl Hct 22.2 L (34.1-44.9) % MCV 91.4 (79.4-94.8) fl MCH 29.2 (25.6-32.2) pg MCHC 32.0 L (32.2-35.5) g/dl RDW Std Deviation 49.8 H (36.4-46.3) fL Plt Count 184 (182-369) K/mm3 MPV 10.8 (9.4-12.3) fl Neut % (Auto) 64.0 (34.0-71.1) % Lymph % (Auto) 27.3 (19.3-51.7) % [place] % (Auto) 6.8 (4.7-12.5) % Eos % (Auto) 0.3 L (0.7-5.8) Baso % (Auto) 0.1 (0.1-1.2) % Neut # (Auto) 10.36 H (1.56-6.13) K/mm3 Lymph # (Auto) 4.42 H (1.18-3.74) K/mm3 [place] # (Auto) 1.10 H (0.24-0.36) K/mm3 Eos # (Auto) 0.05 (0.04-0.36) K/mm3 Baso # (Auto) 0.02 (0.01-0.08) K/mm3 Manual Slide Review Abnormal smear Sodium 139 (136-145) mEq/L Potassium 3.4 L (3.5-5.1) mEq/L Chloride 104 (98-107) mEq/L Carbon Dioxide 28 (21-32) mEq/L Anion Gap 10.4 (5-15) BUN 10 (7-18) mg/dL Creatinine 0.7 (0.55-1.02) mg/dL Est Cr Clr Drug Dosing 92.10 mL/min Estimated GFR (MDRD) > 60 (>60) mL/min BUN/Creatinine Ratio 14.3 (14-18) Glucose 75 (74-106) mg/dL Calcium 8.2 L (8.5-10.1) mg/dL Total Bilirubin 0.2 (0.2-1.0) mg/dL AST 24 (15-37) U/L ALT 15 (14-59) U/L Alkaline Phosphatase 58 (46-116) U/L Total Protein 5.5 L (6.4-8.2) g/dl Albumin 1.9 L (3.4-5.0) g/dl Globulin 3.6 gm/dL Albumin/Globulin Ratio 0.5 L (1-2) Blood Type O POSITIVE Gel Antibody Screen Negative Crossmatch See Detail ASSESSMENT: 30-year-old female -0-0-4 s/p repeat section POD #3 for history of section, status post takeback surgery for abdominal hematoma and bleeding with supracervical hysterectomy performed, POD #3, complicated by acute blood loss anemia with abdominal hematoma and bleeding leading to take back surgery for supracervical hysterectomy, obesity and history of section Patient received a total of 7 units PRBCs (6 units on day of surgery and 1 unit on POD #3) and 2 units of FFP on day of surgery PLAN: * Doing well overall throughout the evening. * Vitals stable at this time with intermittent mild tachycardia but no evidence of hypotension. She has had some evidence of a mild hypertension but no other concerning symptoms. Suspect that her hypertensive blood pressures are most likely due to reactive changes with pain. Patient is afebrile. * CBC this morning showed hemoglobin of 7.1. Patient is symptomatic with lightheadedness, dizziness, shortness of breath and difficulty breathing after breakfast this morning. Because of her low hemoglobin of 7.1 with the symptoms I recommended for the patient to receive an additional 1 unit PRBCs. This was ordered at this time. We will recheck a CBC 8 hours after the CBC is completed and in the morning of POD #4. * Bottlefeeding with minimal difficulty. Patient plans to try breast-feeding at some point prior to discharge. Assist as needed * Incision healing well. Continue to keep clean and dry. * Lochia minimal and decreasing. Continue to monitor for appropriate lochia. * Continue routine post-operative care * Anticipate discharge home once patient is stable enough for discharge, anticipate this to be on POD #4 or #5 Cuco Doty MD 10:35 AM 07/11/2020
[2020-07-11] MEDS ORDERED: Magnesium Hydroxide 400 MG/5 ML Susp 30 ML Cup PO PRN (11:02)
[2020-07-11] MEDS ORDERED: Potassium Chloride 20 MEQ Tab.ER PO ONE (11:30)
[2020-07-12] MEDS: Acetaminophen/oxyCODONE 325-5 MG Tab PO PRN ×3 (00:31→09:11)
[2020-07-12] MEDS: Ibuprofen 800 MG Tab PO SCH ×2 (05:43→13:20)
--- NOTE | 2020-07-12 07:08 | PCM.DCSUM1 ---
Discharge Summary - Hospital Course Brief History: Admitted for RCS. Under went without difficulty with fairly soon take back for hysterectomy. Stable at discharge. 30-year-old female -0-0-4 s/p repeat section POD #3 for history of section, status post takeback surgery for abdominal hematoma and bleeding with supracervical hysterectomy performed, POD #3, complicated by acute blood loss anemia with abdominal hematoma and bleeding leading to take back surgery for supracervical hysterectomy, obesity and history of section. Patient received a total of 7 units PRBCs (6 units on day of surgery and 1 unit on POD #3) and 2 units of FFP on day of surgery Diagnosis: Stroke: No - Discharge Data Discharge Date: 07/12/20 Discharge Disposition: Home, Self-Care 01 Condition: Good - Referral to Home Health Primary Care Physician: Davis Young MD - Patient Summary/Data Operative Procedure(s) Performed: Laparotomy, evacuation of right pelvic retroperitoneal hematoma, abdominal hysterectomy with right salpingo- oophorectomy and left salpingectomy. Hospital Course: s/p 3 units prbc - Patient Instructions Diet: Usual Diet as Tolerated Activity: No Strenuous Activities Driving: May Drive Today Showering/Bathing: May Shower Wound/Incision Care: Keep Operative Site/Wound Site Clean and Dry Notify Provider of: Fever, Increased Pain, Swelling and Redness, Drainage, Nausea and/or Vomiting - Discharge Plan *PRESCRIPTION DRUG MONITORING PROGRAM REVIEWED*: No *COPY OF PRESCRIPTION DRUG MONITORING REPORT IN PATIENT [place]ON[place]: No Home Medications: Home Meds Prenat 115/Iron Fum/Folic/Dss [ 19 Tablet] 1 tab PO DAILY 12/17/19 [History] Referrals: Davis Young MD [Primary Care Provider] - (2 weeks) - Discharge Summary/Plan Comment DC Time >30 min.: No - General Info Date of Service: 07/12/20 Functional Status: Reports: Pain Controlled - Review of Systems General: Reports: No Symptoms HEENT: Reports: No Symptoms Pulmonary: Reports: No Symptoms Cardiovascular: Reports: No Symptoms Gastrointestinal: Reports: No Symptoms Genitourinary: Reports: No Symptoms Musculoskeletal: Reports: No Symptoms Skin: Reports: No Symptoms Neurological: Reports: No Symptoms Psychiatric: Reports: No Symptoms - Patient Data Vitals - Most Recent: Last Vital Signs Temp 36.8 C 07/12/20 04:00 Pulse 64 07/12/20 04:06 Resp 14 07/12/20 04:00 BP 120/80 07/12/20 04:00 Pulse Ox 92 L 07/12/20 04:06 Weight - Most Recent: 85.82 kg I&O - Last 24 hours: Intake & Output 07/11/20 07/12/20 07/12/20 22:59 06:59 14:59 Intake Total 420 Balance 420 Lab Results - Last 24 hrs: Laboratory Results - last 24 hr 07/08/20 07/11/20 07/11/20 Range/Units 07:42 05:41 05:41 WBC (3.98-10.04) K/mm3 RBC (3.98-5.22) M/mm3 Hgb (11.2-15.7) gm/dl Hct (34.1-44.9) % MCV (79.4-94.8) fl MCH (25.6-32.2) pg MCHC (32.2-35.5) g/dl RDW Std Deviation (36.4-46.3) fL Plt Count (182-369) K/mm3 MPV (9.4-12.3) fl Neut % (Auto) (34.0-71.1) % Lymph % (Auto) (19.3-51.7) % [place] % (Auto) (4.7-12.5) % Eos % (Auto) (0.7-5.8) Baso % (Auto) (0.1-1.2) % Neut # (Auto) (1.56-6.13) K/mm3 Lymph # (Auto) (1.18-3.74) K/mm3 [place] # (Auto) (0.24-0.36) K/mm3 Eos # (Auto) (0.04-0.36) K/mm3 Baso # (Auto) (0.01-0.08) K/mm3 Manual Slide Review Abnormal smear Blood Type O POSITIVE O POSITIVE Gel Antibody Screen Negative Negative Crossmatch See Detail See Detail 07/11/20 07/12/20 Range/Units 20:35 04:55 WBC 15.07 H 12.80 H (3.98-10.04) K/mm3 RBC 3.15 L 3.31 L (3.98-5.22) M/mm3 Hgb 9.0 L D 9.7 L (11.2-15.7) gm/dl Hct 28.2 L 29.8 L (34.1-44.9) % MCV 89.5 90.0 (79.4-94.8) fl MCH 28.6 29.3 (25.6-32.2) pg MCHC 31.9 L 32.6 (32.2-35.5) g/dl RDW Std Deviation 47.2 H 47.2 H (36.4-46.3) fL Plt Count 225 250 (182-369) K/mm3 MPV 10.3 10.5 (9.4-12.3) fl Neut % (Auto) 63.6 61.2 (34.0-71.1) % Lymph % (Auto) 27.8 29.4 (19.3-51.7) % [place] % (Auto) 6.2 6.4 (4.7-12.5) % Eos % (Auto) 1.1 2.0 (0.7-5.8) Baso % (Auto) 0.2 0.2 (0.1-1.2) % Neut # (Auto) 9.59 H 7.85 H (1.56-6.13) K/mm3 Lymph # (Auto) 4.19 H 3.76 H (1.18-3.74) K/mm3 [place] # (Auto) 0.93 H 0.82 H (0.24-0.36) K/mm3 Eos # (Auto) 0.16 0.25 (0.04-0.36) K/mm3 Baso # (Auto) 0.03 0.02 (0.01-0.08) K/mm3 Manual Slide Review Abnormal smear Blood Type Gel Antibody Screen Crossmatch Med Orders - Current: Current Medications Diphenhydramine HCl (Benadryl) 25 mg IVPUSH Q6H PRN PRN Reason: Itching or Nausea Docusate Sodium (Colace) 100 mg PO BID BENJAMIN Last Admin: 07/11/20 21:01 Dose: 100 mg Documented by: Ephedrine Sulfate (Ephedrine Sulfate) 5 mg IVPUSH SEECOMMENT PRN PRN Reason: Other Hydromorphone HCl (Dilaudid) 0.5 mg IVPUSH Q2H PRN PRN Reason: Pain Last Admin: 07/10/20 22:00 Dose: 0.5 mg Documented by: Ibuprofen (Motrin) 800 mg PO Q8H BENJAMIN Last Admin: 07/12/20 05:43 Dose: 800 mg Documented by: Magnesium Hydroxide (Milk Of Magnesia) 30 ml PO BID PRN PRN Reason: Constipation Last Admin: 07/11/20 21:01 Dose: 30 ml Documented by: Naloxone HCl (Narcan) 0.1 mg IVPUSH SEECOMMENT PRN PRN Reason: Respiratory Depression Ondansetron HCl (Zofran) 4 mg IV Q4H PRN PRN Reason: Nausea/Vomiting Oxycodone HCl (Oxycodone) 5 mg PO Q4H PRN PRN Reason: Pain (severe 7-10) Oxycodone/Acetaminophen (Percocet 325-5 Mg) 1 tab PO Q4H PRN PRN Reason: Pain (moderate 4-6) Last Admin: 07/11/20 13:17 Dose: 1 tab Documented by: Oxycodone/Acetaminophen (Percocet 325-5 Mg) 2 tab PO Q4H PRN PRN Reason: Pain (severe 7-10) Last Admin: 07/12/20 04:07 Dose: 2 tab Documented by: Simethicone (Simethicone) 160 mg PO QID [facility] Last Admin: 07/11/20 21:01 Dose: 160 mg Documented by: Discontinued Medications Bupivacaine HCl (Marcaine 0.5%) Confirm Administered Dose 30 ml .ROUTE .STK-MED ONE Stop: 07/08/20 08:22 Last Admin: 07/08/20 08:46 Dose: 20 ml Documented by: Bupivacaine HCl (Marcaine 0.5%) Confirm Administered Dose 30 ml .ROUTE .STK-MED ONE Stop: 07/08/20 13:43 Bupivacaine HCl (Marcaine 0.5%) Confirm Administered Dose 30 ml .ROUTE .STK-MED ONE Stop: 07/08/20 13:45 Citric Acid/Sodium Citrate (Bicitra Solution) 30 ml PO ONETIME ONE Stop: 07/08/20 07:10 Last Admin: 07/08/20 08:13 Dose: 30 ml Documented by: Diphenhydramine HCl (Benadryl) 25 mg IVPUSH Q6H PRN PRN Reason: pruritis Diphenhydramine HCl (Benadryl) 25 mg IVPUSH Q6H PRN PRN Reason: Itching or Nausea Diphenhydramine HCl (Benadryl) 25 mg IVPUSH Q6H PRN PRN Reason: pruritis Stop: 07/08/20 18:30 Docusate Sodium (Colace) 100 mg PO Q12H PRN PRN Reason: Constipation Docusate Sodium (Colace) 100 mg PO Q12H PRN PRN Reason: Constipation Last Admin: 07/09/20 20:55 Dose: 100 mg Documented by: Ephedrine Sulfate (Ephedrine Sulfate) 5 mg IVPUSH ASDIRECTED PRN PRN Reason: Hypotension Ephedrine Sulfate (Ephedrine Sulfate) 5 mg IVPUSH SEECOMMENT PRN PRN Reason: Other Ephedrine Sulfate (Ephedrine Sulfate) 10 mg IVPUSH ONETIME ONE Stop: 07/08/20 12:08 Last Admin: 07/08/20 14:19 Dose: Not Given Documented by: Ephedrine Sulfate (Ephedrine Sulfate) 10 mg IVPUSH ONETIME ONE Stop: 07/08/20 13:08 Last Admin: 07/08/20 13:04 Dose: 10 mg Documented by: Fentanyl (Sublimaze) 100 mcg EPIDUR Q3H PRN PRN Reason: Pain Fentanyl (Sublimaze) Confirm Administered Dose 250 mcg .ROUTE .STK-MED ONE Stop: 07/08/20 13:40 Fentanyl (Sublimaze) 50 mcg IVPUSH Q5M PRN PRN Reason: Pain Stop: 07/08/20 18:30 Fentanyl/Bupivacaine HCl (Fentanyl/Bupivacaine/Ns 2 Mcg-0.125% 100 Ml) 100 ml EPIDUR ASDIRECTED PRN PRN Reason: Pain Clindamycin Phosphate 900 mg/ (Premix) 50 mls @ 100 mls/hr IV ONETIME ONE Stop: 07/08/20 07:59 Last Admin: 07/08/20 14:25 Dose: Not Given Documented by: Gentamicin Sulfate 425 mg/ (Sodium Chloride) 110.625 mls @ 110.625 mls/hr IV ONETIME ONE Stop: 07/08/20 08:59 Last Admin: 07/08/20 14:25 Dose: Not Given Documented by: Oxytocin/Lactated Ringer's (Pitocin In Lr 20 Units/1,000 Ml) 20 unit in 1,000 mls @ 500 mls/hr IV TITRATE BENJAMIN Azithromycin 500 mg/ Sodium (Chloride) 250 mls @ 250 mls/hr IV ONETIME ONE Stop: 07/08/20 09:59 Last Admin: 07/08/20 08:11 Dose: 250 mls/hr Documented by: Lactated Ringer's (Ringers, Lactated) 1,000 mls @ 125 mls/hr IV ASDIRECTED [facility] Last Admin: 07/08/20 08:10 Dose: 125 mls/hr Documented by: Lactated Ringer's (Ringers, Lactated) Confirm Administered Dose 1,000 mls @ as directed .ROUTE .[facility] ONE Stop: 07/08/20 07:21 Last Admin: 07/08/20 14:25 Dose: Not Given Documented by: Lactated Ringer's (Ringers, Lactated) Confirm Administered Dose 1,000 mls @ as directed .ROUTE .[facility] ONE Stop: 07/08/20 08:19 Dextrose/Lactated Ringer's (Dextrose 5%-Lactated Ringers) Confirm Administered Dose 1,000 mls @ as directed .ROUTE .[facility] ONE Stop: 07/08/20 11:03 Last Admin: 07/08/20 11:31 Dose: Not Given Documented by: Dextrose/Lactated Ringer's (Dextrose 5%-Lactated Ringers) 1,000 mls @ 125 mls/hr IV ASDIRECTED [facility] Stop: 07/08/20 19:09 Last Admin: 07/08/20 11:00 Dose: 125 mls/hr Documented by: Sodium Chloride (Normal Saline) 1,000 mls @ 125 mls/hr IV ASDIRECTED [facility] Last Admin: 07/08/20 12:04 Dose: 125 mls/hr Documented by: Sodium Chloride (Normal Saline) Confirm Administered Dose 1,000 mls @ as directed .ROUTE .[facility] ONE Stop: 07/08/20 12:03 Last Admin: 07/08/20 12:15 Dose: Not Given Documented by: Sodium Chloride (Normal Saline) 1,000 mls @ 999 mls/hr IV ONETIME ONE Stop: 07/08/20 13:05 Last Admin: 07/08/20 12:04 Dose: 999 mls/hr Documented by: Clindamycin Phosphate 900 mg/ (Sodium Chloride) 106 mls @ 200 mls/hr IV ONETIME ONE Stop: 07/08/20 14:31 Last Admin: 07/08/20 14:28 Dose: Not Given Documented by: Sodium Chloride (Normal Saline) Confirm Administered Dose 1,000 mls @ as directed .ROUTE .STK-MED ONE Stop: 07/08/20 15:13 Sodium Chloride (Normal Saline) Confirm Administered Dose 1,000 mls @ as directed .ROUTE .ST-MED ONE Stop: 07/08/20 15:13 Lactated Ringer's (Ringers, Lactated) Confirm Administered Dose 1,000 mls @ as directed .ROUTE .[facility] ONE Stop: 07/08/20 15:13 Dextrose/Lactated Ringer's (Dextrose 5%-Lactated Ringers) 1,000 mls @ 125 mls/hr IV ASDIRECTED [facility] Stop: 07/09/20 01:16 Last Admin: 07/09/20 01:56 Dose: 125 mls/hr Documented by: Clindamycin Phosphate 900 mg/ (Sodium Chloride) 106 mls @ 200 mls/hr IV Q6H [facility] Stop: 07/09/20 09:00 Last Admin: 07/10/20 06:58 Dose: Not Given Documented by: Clindamycin Phosphate 900 mg/ (Premix) 50 mls @ 100 mls/hr IV ONETIME ONE Stop: 07/09/20 09:59 Last Admin: 07/09/20 09:29 Dose: 6 mls/hr Documented by: Sodium Chloride (Normal Saline (Advbag)) Confirm Administered Dose 250 mls @ as directed .ROUTE .ST-MED ONE Stop: 07/11/20 10:34 Last Admin: 07/11/20 22:49 Dose: Not Given Documented by: Ibuprofen (Motrin) 800 mg PO Q8H [facility] Last Admin: 07/08/20 17:52 Dose: Not Given Documented by: Ibuprofen (Motrin) 800 mg PO Q8H [facility] Last Admin: 07/11/20 20:03 Dose: Not Given Documented by: Ketamine HCl (Ketalar) Confirm Administered Dose 500 mg .ROUTE .STK-MED ONE Stop: 07/08/20 15:07 Ketorolac Tromethamine (Toradol) Confirm Administered Dose 30 mg .ROUTE .STK-MED ONE Stop: 07/08/20 09:08 Methylergonovine Maleate (Methergine) 0.2 mg IM STAT STA Stop: 07/08/20 11:16 Last Admin: 07/08/20 11:23 Dose: 0.2 mg Documented by: Methylergonovine Maleate (Methergine) Confirm Administered Dose 0.2 mg .ROUTE .STK-MED ONE Stop: 07/08/20 11:21 Last Admin: 07/08/20 11:31 Dose: Not Given Documented by: Methylergonovine Maleate (Methergine) Confirm Administered Dose 0.2 mg .ROUTE .STK-MED ONE Stop: 07/08/20 14:34 Last Admin: 07/08/20 14:30 Dose: 0.2 mg Documented by: Metoclopramide HCl (Reglan) 10 mg IVPUSH ONETIME ONE Stop: 07/08/20 08:01 Last Admin: 07/08/20 08:13 Dose: 10 mg Documented by: Midazolam HCl (Versed 1 Mg/Ml) Confirm Administered Dose 2 mg .ROUTE .STK-MED ONE Stop: 07/08/20 13:40 Misoprostol (Cytotec) 400 mcg PO Q2HR BENJAMIN Stop: 07/08/20 14:01 Last Admin: 07/08/20 14:25 Dose: Not Given Documented by: Misoprostol (Cytotec) 400 mcg PO Q2H BENJAMIN Stop: 07/08/20 15:31 Last Admin: 07/08/20 17:53 Dose: Not Given Documented by: Morphine Sulfate (Duramorph Pf) Confirm Administered Dose 10 mg .ROUTE .STK-MED ONE Stop: 07/08/20 08:18 Naloxone HCl (Narcan) 0.1 mg IVPUSH SEECOMMENT PRN PRN Reason: Respiratory Depression Ondansetron HCl (Zofran) 4 mg IV Q4H PRN PRN Reason: Nausea/Vomiting Ondansetron HCl (Zofran) Confirm Administered Dose 4 mg .ROUTE .STK-MED ONE Stop: 07/08/20 13:40 Ondansetron HCl (Zofran) 4 mg IVPUSH ONETIME PRN PRN Reason: Nausea/Vomiting Stop: 07/08/20 18:30 Oxycodone/Acetaminophen (Percocet 325-5 Mg) 1 tab PO Q4H PRN PRN Reason: Pain (moderate 4-6) Oxycodone/Acetaminophen (Percocet 325-5 Mg) 2 tab PO Q4H PRN PRN Reason: Pain (severe 7-10) Oxytocin (Pitocin) Confirm Administered Dose 10 unit .ROUTE .STK-MED ONE Stop: 07/08/20 08:49 Oxytocin (Pitocin) Confirm Administered Dose 10 unit .ROUTE .STK-MED ONE Stop: 07/08/20 08:49 Phenylephrine HCl (Tyrel-Synephrine) Confirm Administered Dose 10 mg .ROUTE .STK- MED ONE Stop: 07/08/20 08:18 Potassium Chloride (Klor-Con M20) 40 meq PO ONETIME ONE Stop: 07/11/20 11:31 Last Admin: 07/11/20 13:16 Dose: 40 meq Documented by: Prenat Multivit/[place]/Iron/Folic Ac ( Plus Iron) 1 each PO DAILY [facility] Promethazine HCl (Phenergan) 12.5 mg IM ONETIME ONE Stop: 07/08/20 12:08 Last Admin: 07/08/20 14:26 Dose: Not Given Documented by: Promethazine HCl (Phenergan) 25 mg IM Q4H PRN PRN Reason: Nausea Last Admin: 07/08/20 12:22 Dose: 25 mg Documented by: Propofol (Diprivan 20 Ml) Confirm Administered Dose 200 mg .ROUTE .STK-MED ONE Stop: 07/08/20 13:40 Simethicone (Simethicone) 160 mg PO QID [facility] Last Admin: 07/08/20 17:53 Dose: Not Given Documented by: Sodium Chloride (Saline Flush) 10 ml FLUSH ASDIRECTED PRN PRN Reason: Keep Vein Open Tranexamic Acid (Cyklokapron) Confirm Administered Dose 1,000 mg .ROUTE .STK-MED ONE Stop: 07/08/20 13:28 Last Admin: 07/08/20 13:37 Dose: 1,000 mg Documented by: Tranexamic Acid (Cyklokapron) 1,000 mg IVPUSH ONETIME ONE Stop: 07/08/20 14:17 Last Admin: 07/08/20 14:27 Dose: Not Given Documented by: - Exam General: Reports: Alert, Oriented HEENT: Reports: Pupils Equal, Pupils Reactive, EOMI, Mucous Membr. Moist/[place] Neck: Reports: Supple Lungs: Reports: Clear to Auscultation, Normal Respiratory Effort Cardiovascular: Reports: Regular Rate, Regular Rhythm GI/Abdominal Exam: Normal Bowel Sounds, Soft, Non-Tender, No Organomegaly Back Exam: Reports: Normal Inspection, Full Range of Motion Extremities: Normal Inspection, Normal Range of Motion, Non-Tender, No Pedal Edema, Normal Capillary Refill Skin: Reports: Warm, Dry, Intact Wound/Incisions: Reports: Healing Well Neurological: Reports: No New Focal Deficit Psy/Mental Status: Reports: Alert, Normal Affect, Normal Mood
[2020-07-12] MEDS ORDERED: Polyethylene Glycol 3350 Powder 17 GM Packet PO ONE (09:07)
[2020-07-12] MEDS: Simethicone 80 MG Tab.Chew PO SCH ×2 (09:11→13:21)
[2020-07-12] MEDS: Docusate Sodium 100 MG Cap PO SCH (09:12)
== END 2020-07-12 14:55 | disposition home or self-care (01) | DRG 784 ==
LOC: JD.OBCHECK 06:40 → JD.OB 06:41 → JD.OBCHECK 07:09 → JD.OB 14:08
PROVIDERS: ADMIT Obstetrics & Gynecology; ATTEND Obstetrics & Gynecology
PROC: 10D00Z1 Extraction of Products of Conception, Low, Open Approach (ICD-10-PCS; principal; 2020-07-08)
PROC: 0UB70ZZ Excision of Bilateral Fallopian Tubes, Open Approach (ICD-10-PCS; 2020-07-08)
PROC: 0UT90ZL Resection of Uterus, Supracervical, Open Approach (ICD-10-PCS; 2020-07-08)
PROC: 0UB00ZZ Excision of Right Ovary, Open Approach (ICD-10-PCS; 2020-07-08)
PROC: 0W9H0ZZ Drainage of Retroperitoneum, Open Approach (ICD-10-PCS; 2020-07-08)
PROC: 30233N1 Transfusion of Nonautologous Red Blood Cells into Peripheral Vein, Percutaneous Approach (ICD-10-PCS; 2020-07-08)
DX: O34.211 Maternal care for low transverse scar from previous cesarean delivery (principal); D62 Acute posthemorrhagic anemia; N99.840 Postprocedural hematoma of a genitourinary system organ or structure following a genitourinary system procedure; Z37.0 Single live birth; Z3A.37 37 weeks gestation of pregnancy; O99.02 Anemia complicating childbirth; O99.214 Obesity complicating childbirth; Z20.828 Contact with and (suspected) exposure to other viral communicable diseases; E66.9 Obesity, unspecified; Z88.0 Allergy status to penicillin; O75.89 Other specified complications of labor and delivery
CPT/HCPCS: 00840; 01961; 36415; 36430; 59025; 76705; 76705-26; 80053; 82570; 82962; 84156; 85007; 85018; 85025; 85027; 85610; 86592; 86850; 86900; 86901; 86922; 94762; A9270-GY; J0330; J0456; J1170; J1580; J1885; J2210; J2250; J2270; J2370; J2405; J2550; J2590; J2704; J2765; J3010; J3490; J7030; J7050; J7120; J7121; P9016; P9017; U0002

== ENCOUNTER 2021-05-05 16:05 | Emergency (ER) | payer MEDICAID ==
[2021-05-05] MEDS ORDERED: Ketorolac 60 MG/2 ML SDV IM ONE (16:54)
--- NOTE | 2021-05-05 16:59 | EDM.PDOC ---
ED HPI GENERAL MEDICAL PROBLEM - General Chief Complaint: Respiratory Problem Stated Complaint: SOB COVID BACK PAIN Time Seen by Provider: 05/05/21 16:40 Source of Information: Reports: Patient History Limitations: Reports: No Limitations, Other (ED vital signs reveal a temp of 98.8, pulse of 91, respiratory rate of 18, blood pressure 134/86, pulse ox 99% on room air) - History of Present Illness INITIAL COMMENTS - FREE TEXT/NARRATIVE: 30-year-old female presents the emergency department with complaints of shortness of breath, cough and backache. Patient was diagnosed with Covid yesterday at the . Patient states that she took ibuprofen yesterday for the backache and has not taken anything since and states that nothing has helped. Chief complaint is shortness of breath however at the time of ED triage her O2 saturations were 100% on room air. She denies any fever, chills, vomiting, diarrhea or abdominal pain. Patient states she has felt nauseated today. She denies any change in her taste and smell. Patient has no significant past medical history. She does not take any prescription medications. She is not a smoker and she only drinks alcohol socially. Lower Back Pain Score (Numeric/FACES): 8 - Related Data Allergies Allergy/AdvReac Type Severity Reaction Status Date / Time Penicillins Allergy Hives Verified 05/05/21 16:35 Home Meds: Home Meds . [No Known Home Meds] 05/05/21 [History] Past Medical History - Past Health History Medical/Surgical History: Denies Medical/Surgical History HEENT History: Reports: Impaired Vision Other HEENT History: wears glasses Cardiovascular History: Reports: None Respiratory History: Reports: None Gastrointestinal History: Reports: GERD Genitourinary History: Reports: None FAMILY LAW SPECIALIST History: Reports: Musculoskeletal History: Reports: None Neurological History: Reports: Migraines Psychiatric History: Reports: Depression, Other (See Below) Other Psychiatric History: suicide attempt as a child Endocrine/Metabolic History: Reports: Obesity/BMI 30+ Hematologic History: Reports: Other (See Below) Immunologic History: Reports: None Oncologic (Cancer) History: Reports: None Dermatologic History: Reports: Eczema - Infectious Disease History Infectious Disease History: Reports: Chicken Pox, Novel Coronavirus - Past Surgical History HEENT Surgical History: Reports: Oral Surgery, Tonsillectomy Female Surgical History: Reports: Section, Hysterectomy Social & Family History - Family History Family Medical History: No Pertinent Family History - Tobacco Use Tobacco Use Status *Q: Former Tobacco User Used Tobacco, but Quit: Yes Month/Year Tobacco Last Used: 09/2018 - Caffeine Use Caffeine Use: Reports: Coffee, Energy Drinks - Recreational Drug Use Recreational Drug Use: No - Living Situation & Occupation Living situation: Reports: Single, with Significant Other, with Family (3 kids) 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 ED EXAM, GENERAL - Physical Exam Exam: See Below Exam Limited By: No Limitations General Appearance: Alert, WD/WN, Mild Distress Ears: Normal External Exam, Hearing Grossly Normal Nose: Normal Inspection Throat/Mouth: Normal Inspection, Normal Lips, Normal Voice, No Airway Compromise Head: Atraumatic, Normocephalic Neck: Normal Inspection, Supple Respiratory/Chest: No Respiratory Distress, Lungs Clear, Normal Breath Sounds, No Accessory Muscle Use, Chest Non-Tender Cardiovascular: Normal Peripheral Pulses, Regular Rate, Rhythm, No Edema, No Murmur Peripheral Pulses: 2+: Radial (L), Radial (R) GI/Abdominal: Normal Bowel Sounds, Soft, Non-Tender, No Distention (Female) Exam: Deferred Rectal (Female) Exam: Normal Exam Back Exam: Normal Inspection, Full Range of Motion, Paraspinal Tenderness Extremities: Normal Inspection, Normal Range of Motion, Non-Tender, No Pedal Edema, Normal Capillary Refill Neurological: Alert, Oriented, Normal Cognition Psychiatric: Normal Affect Skin Exam: Warm, Dry, Intact, Normal Color, No Rash Lymphatic: No Adenopathy Course - Vital Signs Text/Narrative:: As stated above patient presents with shortness of breath, cough and backache after being diagnosed with Covid yesterday. Assessment is essentially unremarkable. Patient's lungs are clear to auscultation. Will obtain portable chest x-ray and give her a shot of Toradol IM. Last Recorded V/S: Last Vital Signs Temp 98.8 F 05/05/21 16:40 Pulse 91 05/05/21 16:40 Resp 18 05/05/21 16:40 BP 134/86 05/05/21 16:40 Pulse Ox 99 05/05/21 16:40 - Orders/Labs/Meds Orders: Active Orders 24 hr Category Date Time Status Chest 1V Frontal [CR] Stat Exams 05/05/21 16:54 Taken Meds: Medications Discontinued Medications Generic Name Dose Route Start Last Admin Trade Name Gama PRN Reason Stop Dose Admin Ketorolac Tromethamine 60 mg 05/05/21 16:54 05/05/21 17:00 Ketorolac 60 Mg/2 Ml Sdv IM 05/05/21 16:55 60 mg ONETIME ONE Administration - Re-Assessments/Exams Free Text/Narrative Re-Assessment/Exam: 05/05/21 17:29 Nothing acute is appreciated on portable view of the chest Patient will be discharged home with recommendations that she quarantine for the next 10 days. Departure - Departure Time of Disposition: 17:29 Disposition: Home, Self-Care 01 Condition: Good Clinical Impression: COVID-19 - Discharge Information Instructions: COVID-19 Frequently Asked Questions, What You Should Know About COVID-19 to Protect Yourself and Others - [facility], COVID-19: Keep Your Baby Healthy and Safe - [facility] (10/06/2020), COVID-19: Quarantine vs. Isolation - [facility] (08/28/2020) Referrals: Arcelia Miramontes PA-C [Primary Care Provider] - Forms: ED Department Discharge Additional Instructions: You were seen in the emergency department today with complaints of shortness of breath, cough and backache. You are not a candidate for monoclonal antibody treatment as there is specific criteria to be able to receive this medication. These are all symptoms associated with Covid. Your oxygen levels were 100% while in the emergency department. You will likely have shortness of breath for the next 1 to 2 weeks. Body aches, fatigue are also associated with Covid. You can take ibuprofen 600 mg every 8 hours for the body aches ordered Tylenol 650 mg every 4 hours. You may also alternate these medications every 4 hours. Be sure to drink plenty of fluids and get lots of rest. You will need to quarantine for 10 days. Should your condition worsen or change, do not hesitate return to the emergency department. Sepsis Event Note (ED) - Evaluation Sepsis Screening Result: No Definite Risk - Focused Exam Vital Signs: Vital Signs Temp Pulse Resp BP Pulse Ox 05/05/21 16:40 98.8 F 91 18 134/86 99 05/05/21 16:38 98.8 F 91 18 134/86 99 - My Orders Last 24 Hours: My Active Orders 05/05/21 16:54 Chest 1V Frontal [CR] Stat - Assessment/Plan Last 24 Hours: My Active Orders 05/05/21 16:54 Chest 1V Frontal [CR] Stat
--- NOTE | 2021-05-05 19:46 | CR ---
Chest: Frontal view of the chest was obtained. Comparison: No prior chest imaging is available. Heart size and mediastinum are normal. Lungs are clear with no acute parenchymal change. Bony structures show nothing acute. Impression: 1. Nothing acute is seen on frontal chest x-ray. Diagnostic code #1
== END 2021-05-05 17:45 | disposition home or self-care (01) ==
LOC: JD.ED 16:05
DX: U07.1 COVID-19 (principal); E66.9 Obesity, unspecified; Z87.891 Personal history of nicotine dependence; Z68.29 Body mass index [BMI] 29.0-29.9, adult
CPT/HCPCS: 71045; 96372; 99284; J1885; 99283

== ENCOUNTER 2023-06-15 09:52 | Emergency (ER) | payer BC ==
[2023-06-15] MEDS ORDERED: Lidocaine/EPINEPHrine/Tetracaine Soln 1 ML TOP ONE (10:23)
[2023-06-15] MEDS ORDERED: Lidocaine 1% 10 ML MDV INJECT ONE (10:24)
[2023-06-15] MEDS ORDERED: cefTRIAXone 1 GM, Lidocaine 1% 2.1 ML IM ONE ×2 (11:54)
== END 2023-06-15 12:29 | disposition home or self-care (01) ==
LOC: JD.ED 09:52
DX: L03.312 Cellulitis of back [any part except buttock and flank] (principal); L02.212 Cutaneous abscess of back [any part, except buttock and flank]; E66.9 Obesity, unspecified; Z86.16 Personal history of COVID-19; Z88.0 Allergy status to penicillin
CPT/HCPCS: 10060; 87070; 87075; 87077; 87186; 87205; 96372; 99283; J0696; J3490